=== PATIENT | male | born 1985 | race African-American/Black ===

== ENCOUNTER 2016-11-09 10:35 | Emergency (ER) | payer OTHER ==
--- NOTE | ~2016-11-09 | EKG ---
PATIENT: THUY VERMA UNIT #: [id number] Ventricular Rate: 62 BPM Atrial Rate: 62 BPM P-R Interval: 164 ms QRS Duration: 94 ms Q-T Interval: 384 ms QTC Calculation(Bezet): 389 ms P [place]: 24 degrees Calculated R [place]: 78 degrees Calculated T [place]: 62 degrees Diagnosis Line: Normal sinus rhythm Diagnosis Line: Voltage criteria for left ventricular hypertrophy Diagnosis Line: ST elevation, consider early repolarization Diagnosis Line: Abnormal ECG Diagnosis Line: No previous ECGs available Diagnosis Line: Confirmed by PRICILLA CHENG MD ([id number]) on Diagnosis Line: 11/09/2016 3:50:20 PM INTERPRETING MD: SKYLAR STEVENS
--- NOTE | ~2016-11-09 | CR72 ---
[facility] A Service of [facility] & [facility] RADIOLOGY TEXT RESULTS PATIENT: THUY VERMA LOCATION: [facility] : 81 UNIT #: [id number] AGE: [address]: Reese Bernstein MD SEX: M ORDER DR: [id number] [facility] [address] [place], [place] [address] [id number] E MR#: [id number] Acc #: [id number] NAME: THUY VERMA : 1985 SEX: M STUDY DATE/TIME: 11/09/2016 11:16 UNIT: [facility] ROOM: STUDY DESCRIPTION: CR Chest Single View Portable Attending Physician: Reese Bernstein M.D. Ordering Physician: Reese Bernstein M.D. Primary Care Physician: Primary Care Physician No MEDICAL IMAGING REPORT This report is preliminary unless electronic signature is present EXAM Portable chest INDICATION Left-sided chest pain since last night. COMPARISON 10/20/2011. FINDINGS A portable view of the chest was obtained. The heart size and vascularity are normal. The lungs are clear. The bones are unremarkable. IMPRESSION No active disease. Dictated by... Srinivasa Fajardo M.D. THIS IS AN ELECTRONICALLY VERIFIED REPORT Srinivasa Fajardo M.D. at 11/09/2016 1:22 PM GUILLERMO/vickie TD: 11/09/2016 12:51 JOB #: [id number] MEDICAL IMAGING REPORT Page 1 of 1 COPY
[~2016-11-09 10:35] MED LIST: ADVAIR 1001 DISK W/D; ALBUTEROL17 GM; SINGULAIR; SINGULAIR PO; TYLOX 5/500 CAP1 CAP PO; VICODIN PO
[2016-11-09 11:36] LABS: POC - CKMB <1.0 ng/mL (0.0-7.9); POC - TROPONIN <0.05 ng/mL (<=0.05)
[2016-11-09 12:07] LABS: BASOPHIL% 0.3 % (0-2.5); EOSINOPHIL# 0.1 X10e3 (0-0.7); EOSINOPHIL% 2.1 % (0.0-7.0); HEMATOCRIT 41.8 % (38.0-50.0); HEMOGLOBIN 13.5 gm/dL (13.0-16.0); LYMPHOCYTE# 1.9 X10e3 (1.0-3.5); LYMPHOCYTE% 42.6 % (17.0-45.0); MEAN CELL VOLUME 88.8 FL (83-96); MEAN CORPUSCULAR HEMOGLOBIN 28.7 PG (28-34); MEAN CORPUSCULAR HGB CONC 32.3 g/dL (30-36); MEAN PLATELET VOLUME 7.6 FL (6.5-11.5); MONOCYTE# 0.3 X10e3 (0-1.0); MONOCYTE% 7.4 % (3.0-12.0); NEUTROPHIL# 2.1 X10e3 (1.5-7.1); NEUTROPHIL% 47.6 % (40-75); PLATELET COUNT 193 X10e3 (140-420); RED BLOOD COUNT 4.71 X10e (3.90-5.60); RED CELL DISTRIBUTION WIDTH 13.9 % (11.0-15.5); WHITE BLOOD COUNT 4.4 X10e3 (4.0-10.5)
[2016-11-09 12:14] LABS: DIFF IND NO
[2016-11-09 12:30] LABS: ALBUMIN SERUM 4.7 g/dL (3.5-5.0); BILIRUBIN, DIRECT 0.1 mg/dL (0.0-0.2); BILIRUBIN,INDIRECT 0.2 mg/dL (0.0-0.9); BILIRUBIN,TOTAL 0.3 mg/dL (0.2-2.0); BUN/CREATININE RATIO 18.75; CALCIUM SERUM 9.6 mg/dL (8.4-10.2); CREATININE SERUM 0.8 mg/dL (0.6-1.4); GLOM FILT RATE Estimated 136.1 mL/min (>60); POTASSIUM 4.4 mmol/L (3.5-5.1); PROTEIN TOTAL SERUM 8.1 g/dL (6.0-8.3)
[2016-11-09 13:17] LABS: POC - CKMB <1.0 ng/mL (0.0-7.9); POC - TROPONIN <0.05 ng/mL (<=0.05)
== END 2016-11-09 14:45 | disposition home or self-care (01) ==
LOC: CED 10:35
PROVIDERS: Emergency Medicine
DX: R07.89 Other chest pain (principal); F41.9 Anxiety disorder, unspecified; J45.909 Unspecified asthma, uncomplicated; Z88.8 Allergy status to other drugs, medicaments and biological substances
CPT/HCPCS: 36415; 71010; 80048; 80076; 82553; 83735; 84484; 85025; 93005; 96374; 99285; J2060

== ENCOUNTER 2016-11-09 11:00 | Inpatient (IN) | payer OTHER ==
--- NOTE | ~2016-11-09 | PN ---
Unit #: [id number] #: [id number] Patient: THUY HIGUERA [id number] [facility] [address] [place] [address] [id number] I MR#: [id number] NAME: THUY HIGUERA ROOM: [facility] Age: 31 Sex: M Admission Date: 11/09/2016 : 1985 Attending Physician: Jose Roberto Whitfield M.D. Admitting Physician: Jose Roberto Whitfield M.D. Primary Care Physician: Primary Care Physician Znia MIX NOTES DATE OF SERVICE 11/11/2016 DISCUSSION Mr. Higuera is a 31-year-old male who was seen today. Chart was reviewed and case was discussed with the staff. He remains anxious, withdrawn, disorganized, and was reading scriptures from the Bible in a dark room with the doors locked and without any light on and was once again seen to be mumbling at best and reaching out, shaking hands, and showing some hyperreligiosity and some persistent delusional behavior. Meanwhile, he has been taking the medications including the Risperdal which was just adjusted yesterday. MENTAL STATUS EXAMINATION Young male who is casually dressed with fair personal hygiene, appears to be in no acute distress or discomfort. The patient was awake and alert with impaired attention and concentration. His mood is anxious with congruent affect. Speech is slow and tangential. His thought processes were disorganized with some looseness of associations and paranoid ideations. His insight and judgment remain significantly impaired. TREATMENT PLAN 1. We will continue him on his current medications and treatment protocol. We will monitor his response to the medications and make further adjustments as needed. 2. We will continue to follow up. Dictated by... David Espinal/neeta TD: 11/11/2016 11:50 JOB #: [id number] Unit #: [id number] #: [id number] Patient: THUY HIGUERA PROGRESS NOTES Page 1 of 1 X Jose Roberto Whitfield MD PROGRESS NOTE
--- NOTE | ~2016-11-09 | DS ---
Unit #: [id number] #: [id number] Patient: THUY VERMA [id number] [place] [address] [id number] I MR#: [id number] NAME: THUY VERMA ROOM: 13 Age: 31 Sex: M Admission Date: 11/09/2016 : 1985 Discharge Date: 11/15/2016 Attending Physician: Jose Roberto Whitfield M.D. Primary Care Physician: Primary Care Physician No DISCHARGE SUMMARY IDENTIFYING DATA Mr. Verma is a 31-year-old single male, who was stepped up to the inpatient unit from the adult intensive outpatient treatment program. DISCHARGE DIAGNOSES Psychiatric: Schizoaffective disorder, bipolar type, most recent episode depressed, recurrent, moderate, with psychosis. Medical: None. Stressors: Mild psychosocial stressors. HISTORY OF PRESENT ILLNESS Please see initial psychiatric evaluation for details. PAST PSYCHIATRIC HISTORY Please see initial psychiatric evaluation for details. PAST MEDICAL HISTORY Please see initial psychiatric evaluation for details. HOSPITAL COURSE The patient was admitted to the adult psychiatric unit at [facility] and was oriented to the hospital environment. Routine p.r.n. medications were initiated, and he was started back on his home medication including his Risperdal which was titrated up to 1 mg b.i.d. and he was closely monitored. He was anxious, withdrawn, rather seclusive to himself, though did not show any agitation or aggression and was rather polite and pleasant and compliant with treatment recommendation and was taking the medications regularly and was tolerating them fairly well and was able to show improvement in his mood and attitude, particularly his psychosis without any tolerability issues. He was denying any suicidal ideations, intent, or plan and was not seen to be a danger to self or anyone else, and was willing to continue treatment through intensive outpatient treatment program at [facility] and as such, it was decided that he will be discharged home and will continue treatment on an outpatient basis. DISCHARGE MEDICATIONS Risperdal 1 mg b.i.d. for psychosis. DISCHARGE CONDITION Stable. PROGNOSIS Unit #: [id number] #: [id number] Patient: THUY VERMA [facility]. Dictated by... Jose Roberto Whitfield M.D. IAA/modl TD: 11/15/2016 22:40 JOB #: [id number] DISCHARGE SUMMARY Page 1 of 1 X Jose Roberto Whitfield MD DISCHARGE SUMMARY
--- NOTE | ~2016-11-09 | PN ---
Unit #: [id number] #: [id number] Patient: THUY VERMA [id number] [facility] [address] [place] [address] [id number] I MR#: [id number] NAME: THUY VERMA ROOM: 13 Age: 31 Sex: M Admission Date: 11/09/2016 : 1985 Attending Physician: Jose Roberto Whitfield M.D. Admitting Physician: Jose Roberto Whitfield M.D. Primary Care Physician: Primary Care Physician Zina MIX NOTES DATE OF SERVICE 11/13/2016 DISCUSSION Mr. Verma is a 31-year-old male who was seen today. Chart was reviewed and case was discussed with the staff. He has been anxious, withdrawn, and rather seclusive to himself. Meanwhile, he has been cooperative with treatment recommendations and has been taking the medications and tolerating them fairly well with no reported side effects. MENTAL STATUS EXAMINATION Young male who is casually dressed with fair personal hygiene, appears to be in no acute distress or discomfort. The patient was awake and alert on interaction with intact orientation. His mood is anxious with congruent affect. He denies any suicidal or homicidal ideations. His insight and judgment remain slightly impaired. TREATMENT PLAN 1. We will continue him on his current treatment protocol. We will monitor his response to the medications and make further adjustments as needed. 2. We will continue to follow up. Dictated by... Jose Roberto Whitfield M.D. IAA/bzg TD: 11/13/2016 13:52 JOB #: [id number] [facility] PROGRESS NOTES Page 1 of 1 X Jose Roberto Whitfield MD PROGRESS NOTE
--- NOTE | ~2016-11-09 | PA ---
Unit #: [id number] #: [id number] Patient: THUY VERMA [id number] [facility] [address] [place] [address] [id number] I MR#: [id number] NAME: THUY VERMA ROOM: 13 Age: 31 Sex: M Admission Date: 11/09/2016 : 1985 Date of Assessment: 11/09/2016 Attending Physician: Jose Roberto Whitfield M.D. Admitting Physician: Jose Roberto Whitfield M.D. Primary Care Physician: Primary Care Physician No PSYCHIATRIC ASSESSMENT DATE OF SERVICE 11/09/2016. IDENTIFYING DATA Mr. Verma is a 31-year-old male, who was stepped up to the inpatient unit from the intensive outpatient treatment program. CHIEF COMPLAINT "I've been hearing voices and I feel suicidal." HISTORY OF PRESENT ILLNESS Mr. Verma is a 31-year-old male with history of schizoaffective disorder, who was stepped up to the inpatient unit with increasing depression, psychosis, paranoia, and delusional behavior and was unable to contract for safety and was failing the outpatient treatment program and was seen to be decompensating on his mood and psychosis and became a danger to self and as such, a recommendation for inpatient level of care for safety and stabilization was made and the patient was stepped up to the inpatient unit. PAST PSYCHIATRIC HISTORY The patient has had a history of inpatient and outpatient psychiatric treatment and has been diagnosed and treated for mood disorder and psychosis and is currently on Risperdal, but does not appear to be showing a therapeutic response to the medication. PAST MEDICAL HISTORY No acute or chronic medical illness. PERSONAL AND SOCIAL HISTORY A 31-year-old male, who reports that he is single, unemployed, and lives at home with his family and has fairly decent social support system. MENTAL STATUS EXAMINATION Young male, who was casually dressed with fair personal hygiene, appears to be in no acute distress or discomfort. He was awake and alert on interaction with intact orientation to time, place, and person. His mood was anxious with a congruent affect. He denies any suicidal or homicidal ideations and also denies any auditory or visual hallucinations. His insight and judgment remain slightly impaired. DIAGNOSTIC IMPRESSION Unit #: [id number] #: [id number] Patient: THUY VERMA Psychiatric: Schizoaffective disorder, bipolar type, most recent episode depressed, recurrent, moderate, without psychotic features. Medical: None. Stressors: Moderate psychosocial stressors. TREATMENT PLAN 1. The patient has presented with a history of mood disorder and psychosis. We will recommend inpatient hospitalization for safety and stabilization. We will start him back on his home medications and we will adjust the medications, the Risperdal. We will monitor his response and make further adjustments as needed. 2. Supportive therapy was provided to the patient. ESTIMATED LENGTH OF STAY 5 to 7 days. ABILITY TO HELP SELF Limited. WILLINGNESS TO HELP SELF The patient appears to be willing to help self. STRENGTHS 1. Communicative. 2. Cooperative. PROBLEMS 1. Chronic dysphoric symptoms. 2. Poor social support system. DISCHARGE CRITERIA This will be contingent upon the patient's ability to show resolution of his depression and psychosis and his ability to stay safe to himself, particularly after discharge from the hospital. Dictated by... David Espinal/meryl TD: 11/25/2016 17:04 JOB #: [id number] PSYCHIATRIC ASSESSMENT Page 1 of 1 X Jose Roberto Whitfield MD X PSYCHIATRIC ASSESSMENT
--- NOTE | ~2016-11-09 | PN ---
Unit #: [id number] #: [id number] Patient: THUY HIGUERA [id number] [facility] [address] [place] [address] [id number] I MR#: [id number] NAME: THUY HIGUERA ROOM: 32 Age: 31 Sex: M Admission Date: 11/09/2016 : 1985 Attending Physician: Jose Roberto Whitfield M.D. Admitting Physician: Jose Roberto Whitfield M.D. Primary Care Physician: Primary Care Physician Zina MIX NOTES DATE OF SERVICE 11/09/2016 DISCUSSION Mr. Higuera is a 31-year-old male who was seen today. Chart was reviewed and case was discussed with staff. He has been exhibiting acute psychosis and bizarre behavior and significant paranoia and delusional behavior and was mumbling at best even though I told him that there is no one else in the room, he was having difficulty speaking up, and then he would make statements that he cannot talk to me about that though he was going on making statements that he does not feel safe and wants to be hospitalized and that he did go to [facility] over the weekend, but they did not admit him in the hospital, and that he need (1) ___ right now. Then he started complaining of chest pain, and even thought it appears to be anxiogenic in nature, he was (2) ___ it was decided that he will be sent out to the emergency room at [facility] followed by which, we will consider getting him go to the acute inpatient psychiatric unit. Dictated by... David Espinal/bzg TD: 11/10/2016 12:33 JOB #: [id number] [facility] PROGRESS NOTES Page 1 of 1 X Jose Roberto Whitfield MD PROGRESS NOTE
--- NOTE | ~2016-11-09 | PN ---
Unit #: [id number] #: [id number] Patient: THUY HIGUERA [id number] [facility] [address] [place] [address] [id number] I MR#: [id number] NAME: THUY HIGUERA ROOM: 13 Age: 31 Sex: M Admission Date: 11/09/2016 : 1985 Attending Physician: Jose Roberto Whitfield M.D. Admitting Physician: Jose Roberto Whitfield M.D. Primary Care Physician: Primary Care Physician Zina MIX NOTES DATE OF SERVICE: 11/14/2016 SUBJECTIVE Mr. Higuera is a 31-year-old male who was seen today and chart was reviewed and case was discussed with the staff. He has been anxious and withdrawn, though has not shown any agitation or irritability, and has been rather seclusive to himself. Meanwhile, he has been cooperative with treatment recommendations and has been taking the medications and tolerating them fairly well with no reported side effects. MENTAL STATUS EXAMINATION Young male who was casually dressed with fair personal hygiene, appears to be in no acute distress or discomfort. He was awake and alert on interaction with intact orientation. His mood was anxious with a congruent affect. He denies any suicidal or homicidal ideations. His insight and judgment remain slightly impaired. TREATMENT PLAN We will continue him on his current treatment and protocol. We will monitor his response to the medications and make further adjustments as needed. Dictated by... David Espinal/isiahl TD: 11/15/2016 23:29 JOB #: [id number] [facility] PROGRESS NOTES Page 1 of 1 X Jose Roberto Whitfield MD PROGRESS NOTE
--- NOTE | ~2016-11-09 | PN ---
Unit #: [id number] #: [id number] Patient: THUY HIGUERA [id number] [facility] [address] [place] [address] [id number] I MR#: [id number] NAME: THUY HIGUERA ROOM: 13 Age: 31 Sex: M Admission Date: 11/09/2016 : 1985 Attending Physician: Jose Roberto Whitfield M.D. Admitting Physician: Jose Roberto Whitfield M.D. Primary Care Physician: Primary Care Physician Zina HENRY PROGRESS NOTES DATE 11/12/2016 DISCUSSION Mr. Higuera is a 31-year-old male who was seen today and chart was reviewed and case was discussed with the staff. He has been anxious, withdrawn and seclusive to himself. Meanwhile, he has been cooperative with treatment recommendations and has been taking medications and tolerating them fairly well with no reported side effects. MENTAL STATUS EXAMINATION Young male who was casually dressed with fair personal hygiene and appears to be in no acute distress or discomfort. He was awake and alert on interaction with intact orientation. His mood was anxious with congruent affect. He denies any suicidal or homicidal ideation. His insight and judgement remains slightly impaired. TREATMENT PLAN 1. Will continue on his current medications and treatment protocol. Will monitor his response to the medications and make further adjustments as needed. 2. Will continue to follow up. Dictated by... David Espinal/paulo TD: 11/12/2016 15:55 JOB #: [id number] Unit #: [id number] #: [id number] Patient: THUY HIGUERA PROGRESS NOTES Page 1 of 1 X Jose Roberto Whitfield MD PROGRESS NOTE
--- NOTE | ~2016-11-09 | HP ---
Unit #: [id number] #: [id number] Patient: THUY VERMA [id number] [place] [address] [id number] I MR#: [id number] NAME: THUY VERMA ROOM: 32 Age: 31 Sex: M Admission Date: 11/09/2016 : 1985 Attending Physician: Jose Roberto Whitfield M.D. Admitting Physician: Jose Roberto Whitfield M.D. Primary Care Physician: Primary Care Physician No HISTORY AND PHYSICAL HISTORY OF PRESENT ILLNESS Thuy is a 31 year old admitted to [address] [place] [address] with psychotic behavior, delusions and increased paranoia. He is a poor historian so his history is taken from his chart. PAST MEDICAL HISTORY Asthma PAST SURGICAL HISTORY Left orchiectomy ALLERGIES Ibuprofen SOCIAL HISTORY Smokes less than one-half pack per day. Drinks beer on occasion. Admits to smoking marijuana on a daily basis. FAMILY HISTORY Medically noncontributory. REVIEW OF SYSTEMS He doesn't answer all questions appropriately. There were no reports of nausea and vomiting or diarrhea. He has had no cough or increased temperature. CURRENT MEDICATIONS 1. Risperdal 1 mg q.h.s. 2. Naproxen 500 mg b.i.d. 3. Vistaril p.r.n. 4. Desyrel p.r.n. 5. Nicotine patch 21 mg q day PHYSICAL EXAMINATION GENERAL: Alert, well-nourished, in no apparent distress. VITAL SIGNS: Blood pressure 116/82, heart rate 80, respirations 16, temperature 98.6. WEIGHT: 130 pounds. HEIGHT: 5'5". SKIN: Warm and dry without rash or lesion. HEENT: Normocephalic. TMs not viewed. Oral and nasal passages clear. Conjunctivae clear. Pupils equal, round and reactive to light and Unit #: [id number] #: [id number] Patient: THUY VERMA accommodation. Extraocular movements intact. NECK: Supple without lymphadenopathy or thyromegaly. HEART: Regular rate and rhythm without murmur. LUNGS: Clear. ABDOMEN: Soft, nontender. : Not done. EXTREMITIES: No evidence of cyanosis, clubbing or edema. Moves all extremities without focal deficit. NEUROLOGICAL: Unable to complete extended exam. He does move all extremities without focal deficit. Hand overhead worker is equal and gait is normal. IMPRESSION Psychiatric admission RECOMMENDATIONS PSYCHIATRIC: Per psychiatrist. MEDICAL: I see no contraindications to participating in facility's activities. MEDICAL PROGNOSIS Good. MEDICAL CONDITION Stable. Dictated by... Holley Wallis P.A.-C. for David Aguilera/jaden TD: 11/10/2016 03:57 JOB #: [id number] HISTORY AND PHYSICAL Page 1 of 1 X Holley Wallis HISTORY AND PHYSICAL
[2016-11-10 12:28] LABS: BASOPHIL% 0.4 % (0-2.5); DIFF IND NO; EOSINOPHIL# 0.2 X10e3 (0-0.7); EOSINOPHIL% 4.2 % (0.0-7.0); HEMATOCRIT 42.5 % (38.0-50.0); HEMOGLOBIN 13.7 gm/dL (13.0-16.0); LYMPHOCYTE# 1.8 X10e3 (1.0-3.5); LYMPHOCYTE% 49.3 % (17.0-45.0); MEAN CORPUSCULAR HEMOGLOBIN 28.6 PG (28-34); MEAN CORPUSCULAR HGB CONC 32.1 g/dL (30-36); MEAN PLATELET VOLUME 7.6 FL (6.5-11.5); MONOCYTE# 0.3 X10e3 (0-1.0); MONOCYTE% 9.6 % (3.0-12.0); NEUTROPHIL# 1.3 X10e3 (1.5-7.1); NEUTROPHIL% 36.5 % (40-75); PLATELET COUNT 199 X10e3 (140-420); RED BLOOD COUNT 4.78 X10e (3.90-5.60); RED CELL DISTRIBUTION WIDTH 13.9 % (11.0-15.5); WHITE BLOOD COUNT 3.6 X10e3 (4.0-10.5)
[2016-11-10 12:35] LABS: ALBUMIN SERUM 4.4 g/dL (3.5-5.0); BILIRUBIN,TOTAL 0.9 mg/dL (0.2-2.0); BUN/CREATININE RATIO 17.77; CALCIUM SERUM 9.5 mg/dL (8.4-10.2); CREATININE SERUM 0.9 mg/dL (0.6-1.4); GLOM FILT RATE Estimated 129.6 mL/min (>60); POTASSIUM 4.4 mmol/L (3.5-5.1); PROTEIN TOTAL SERUM 7.5 g/dL (6.0-8.3)
[2016-11-10 12:43] LABS: THYROID STIMULATING HORMONE 0.51 uIU/ml (0.34-5.60)
[2016-11-10 12:50] LABS: FREE THYROXIN (T4) 0.98 ng/dL (0.58-1.64)
== END 2016-11-15 10:50 | disposition home or self-care (01) | DRG 885 ==
LOC: P1S 14:36
PROVIDERS: Psychiatry & Neurology Psychiatry
DX: F31.5 Bipolar disorder, current episode depressed, severe, with psychotic features (principal); F17.210 Nicotine dependence, cigarettes, uncomplicated; J45.909 Unspecified asthma, uncomplicated
CPT/HCPCS: 80053; 84439; 84443; 85025

== ENCOUNTER 2016-11-21 12:51 | Emergency (ER) | payer OTHER ==
--- NOTE | ~2016-11-21 | EKG ---
PATIENT: THUY VERMA UNIT #: [id number] Ventricular Rate: 86 BPM Atrial Rate: 86 BPM P-R Interval: 150 ms QRS Duration: 80 ms Q-T Interval: 350 ms QTC Calculation(Bezet): 418 ms P [place]: 68 degrees Calculated R [place]: 68 degrees Calculated T [place]: 56 degrees Diagnosis Line: Normal sinus rhythm with sinus arrhythmia Diagnosis Line: Minimal voltage criteria for LVH, may be normal Diagnosis Line: variant Diagnosis Line: Borderline ECG Diagnosis Line: When compared with ECG of 09-NOV-2016 10:34, Diagnosis Line: No significant change was found Diagnosis Line: Confirmed by IGNACIO SHAH MD ([id number]) on 11/21/2016 Diagnosis Line: 4:54:07 PM INTERPRETING MD: ALYSSA STEVENS
[2016-11-21 14:10] LABS: BASOPHIL% 0.3 % (0-2.5); EOSINOPHIL# 0.3 X10e3 (0-0.7); EOSINOPHIL% 3.8 % (0.0-7.0); LYMPHOCYTE% 27.5 % (17.0-45.0); MEAN CELL VOLUME 87.4 FL (83-96); MEAN CORPUSCULAR HEMOGLOBIN 29.1 PG (28-34); MEAN CORPUSCULAR HGB CONC 33.3 g/dL (30-36); MEAN PLATELET VOLUME 6.8 FL (6.5-11.5); MONOCYTE# 0.5 X10e3 (0-1.0); MONOCYTE% 7.2 % (3.0-12.0); NEUTROPHIL# 4.5 X10e3 (1.5-7.1); NEUTROPHIL% 61.2 % (40-75); PLATELET COUNT 191 X10e3 (140-420); RED BLOOD COUNT 4.81 X10e (3.90-5.60); RED CELL DISTRIBUTION WIDTH 13.8 % (11.0-15.5); WHITE BLOOD COUNT 7.4 X10e3 (4.0-10.5)
[2016-11-21 14:19] LABS: DIFF IND NO
[2016-11-21 14:32] LABS: ALBUMIN SERUM 4.8 g/dL (3.5-5.0); ALKALINE PHOSPHATASE 49 U/L (32-92); ALT (SGPT) 41 U/L (10-40); AST (SGOT) 61 U/L (10-42); BILIRUBIN,TOTAL 0.5 mg/dL (0.2-2.0); BLOOD UREA NITROGEN 17 mg/dL (9-23); CALCIUM SERUM 9.8 mg/dL (8.4-10.2); CARBON DIOXIDE 30 mmol/L (22-31); CHLORIDE 100 mmol/L (100-111); GLOM FILT RATE Estimated 114.1 mL/min (>60); GLUCOSE FASTING 101 mg/dL (70-110); POTASSIUM 4.5 mmol/L (3.5-5.1); PROTEIN TOTAL SERUM 8.4 g/dL (6.0-8.3); SODIUM 137 mmol/L (135-145)
[2016-11-21 14:34] LABS: POC - CKMB 1.6 ng/mL (0.0-7.9); POC - TROPONIN <0.05 ng/mL (<=0.05)
[2016-11-21 14:38] LABS: BILIRUBIN, DIRECT <0.1 mg/dL (0.0-0.2); BILIRUBIN,INDIRECT 0.4 mg/dL (0.0-0.9)
[2016-11-21 16:35] LABS: POC - CKMB 1.2 ng/mL (0.0-7.9); POC - TROPONIN <0.05 ng/mL (<=0.05)
== END 2016-11-21 17:36 | disposition home or self-care (01) ==
LOC: CED 12:51
DX: R07.89 Other chest pain (principal); Z91.041 Radiographic dye allergy status; Z91.030 Bee allergy status; Z88.8 Allergy status to other drugs, medicaments and biological substances
CPT/HCPCS: 36415; 80048; 80076; 82553; 84484; 85025; 93005; 99285

== ENCOUNTER 2016-11-24 09:50 | Emergency (ER) | payer OTHER ==
--- NOTE | ~2016-11-24 | EKG ---
PATIENT: THUY VREMA UNIT #: [id number] Ventricular Rate: 91 BPM Atrial Rate: 91 BPM P-R Interval: 154 ms QRS Duration: 78 ms Q-T Interval: 336 ms QTC Calculation(Bezet): 413 ms P [place]: 65 degrees Calculated R [place]: 64 degrees Calculated T [place]: 50 degrees Diagnosis Line: Normal sinus rhythm Diagnosis Line: Early repolarization Diagnosis Line: Normal ECG Diagnosis Line: When compared with ECG of 21-NOV-2016 13:03, Diagnosis Line: No significant change was found Diagnosis Line: Confirmed by MONIKA CARBONE MD ([id number]) on Diagnosis Line: 11/26/2016 3:39:38 PM INTERPRETING MD: EDNA
--- NOTE | ~2016-11-24 | CR63 ---
[facility] A Service of [facility] & [facility] RADIOLOGY TEXT RESULTS PATIENT: THUY VERMA LOCATION: [facility] : 81 UNIT #: [id number] AGE: [address]: Alba Macario SEX: M ORDER DR: [id number] [facility] [address] [place], [place] [address] [id number] MR#: [id number] Acc #: [id number] NAME: THUY VERMA : 1985 SEX: M STUDY DATE/TIME: 11/24/2016 10:21 UNIT: [facility] ROOM: STUDY DESCRIPTION: CR Chest 2 View Attending Physician: Alba Macario P.A.-C. Ordering Physician: Alba Macario P.A.-C. Primary Care Physician: Primary Care Physician No MEDICAL IMAGING REPORT This report is preliminary unless electronic signature is present EXAM Two views chest, 11/24/16 HISTORY Chest pain. FINDINGS PA and lateral radiographs of the chest are presented. Patient stats chest pain, spasm for one month. History of pericarditis. Comparison: 11/09/16 Heart upper limits of normal in size. Stable appearance. No acute bony abnormality. Lungs are well inflated. No acute pulmonary disease, pleural effusion or pneumothorax. No suspicious nodule. . Dictated by... Maury Gaffney M.D. THIS IS AN ELECTRONICALLY VERIFIED REPORT Maury Gaffney M.D. at 11/25/2016 6:12 PM Rafael TD: 11/24/2016 11:18 JOB #: [id number] MEDICAL IMAGING REPORT Page 1 of 1 COPY
[2016-11-24 10:26] LABS: BASOPHIL% 0.3 % (0-2.5); DIFF IND NO; EOSINOPHIL# 0.2 X10e3 (0-0.7); EOSINOPHIL% 2.5 % (0.0-7.0); HEMATOCRIT 40.7 % (38.0-50.0); HEMOGLOBIN 13.4 gm/dL (13.0-16.0); LYMPHOCYTE# 2.5 X10e3 (1.0-3.5); MEAN CELL VOLUME 87.2 FL (83-96); MEAN CORPUSCULAR HEMOGLOBIN 28.7 PG (28-34); MEAN CORPUSCULAR HGB CONC 32.9 g/dL (30-36); MEAN PLATELET VOLUME 7.1 FL (6.5-11.5); MONOCYTE# 0.4 X10e3 (0-1.0); MONOCYTE% 6.6 % (3.0-12.0); NEUTROPHIL# 3.6 X10e3 (1.5-7.1); NEUTROPHIL% 53.6 % (40-75); PLATELET COUNT 201 X10e3 (140-420); RED BLOOD COUNT 4.66 X10e (3.90-5.60); RED CELL DISTRIBUTION WIDTH 13.7 % (11.0-15.5); WHITE BLOOD COUNT 6.7 X10e3 (4.0-10.5)
[2016-11-24 10:33] LABS: POC - CKMB <1.0 ng/mL (0.0-7.9); POC - TROPONIN <0.05 ng/mL (<=0.05)
[2016-11-24 10:56] LABS: BUN/CREATININE RATIO 18.88; CALCIUM SERUM 9.6 mg/dL (8.4-10.2); CREATININE SERUM 0.9 mg/dL (0.6-1.4); GLOM FILT RATE Estimated 129.6 mL/min (>60); POTASSIUM 4.4 mmol/L (3.5-5.1)
== END 2016-11-24 11:04 | disposition home or self-care (01) ==
LOC: CED 09:50 → CFTX 09:50
PROVIDERS: Physician Assistant
DX: R07.89 Other chest pain (principal); F22 Delusional disorders; F31.9 Bipolar disorder, unspecified; J45.909 Unspecified asthma, uncomplicated; F17.200 Nicotine dependence, unspecified, uncomplicated; Z91.030 Bee allergy status; Z91.018 Allergy to other foods; F41.9 Anxiety disorder, unspecified
CPT/HCPCS: 36415; 71020; 80048; 82553; 84484; 85025; 93005; 99284

== ENCOUNTER 2016-11-27 11:30 | Observation (INO) | payer OTHER ==
--- NOTE | ~2016-11-27 | HP ---
Unit #: [id number] #: [id number] Patient: THUY VERMA [id number] [address] [place], [place] [address] [id number] I MR#: [id number] NAME: THUY VERMA ROOM: 322 Age: 31 Sex: M Admission Date: 11/27/2016 : 1985 Attending Physician: Reese Vickers M.D. Primary Care Physician: No Primary Care Physician HISTORY AND PHYSICAL HISTORY OF PRESENT ILLNESS This is a 31-year-old -Malaysian male who presented to the emergency room with a complaint of chest pain. He states he has substernal and left anterior chest pain that is nonradiating to his neck, arm or jaw. He has associated shortness of breath, diaphoresis, dizziness and occasional nausea. He has a history of panic attacks and most of his chest pain is related to panic attacks. He has had episodes of chest pain when he was not having a panic attack. He has been to this emergency room on three separate occasions as well as [facility]. He was told at one time he had pericarditis and was started on Naprosyn. He also was told that he had muscle spasms and was started on Flexeril. He has been taking these medications but his symptoms reoccur. He describes the chest pain as a tightness with spasms. They have awakened him from sleep and it does occur with activities as well as with rest. In the emergency room, his enzymes were negative. His EKG showed ST elevation that was consistent with repolarization. His heart rate and blood pressure remained stable. He has had no prior cardiac history or testing. His risk factors for ischemic heart disease include nicotine abuse. PAST MEDICAL HISTORY 1. Asthma. 2. Anxiety/depression. 3. Active smoker. 4. ETOH abuse. 5. Occasional marijuana use. SOCIAL HISTORY The patient is not employed. He lives with his mother. He smokes four cigarettes a day, cut down from a half a pack of cigarettes a day since 01/26. He drinks two 22 ounces of beer every other day. He admits to use occasional marijuana. FAMILY HISTORY Negative for coronary artery disease. ALLERGIES Ibuprofen, honey bee stings and red dye. HOME MEDICATIONS 1. Risperdal 1 mg q.h.s. 2. Naprosyn 500 mg b.i.d. p.r.n. 3. Hydroxyzine 50 mg q.6 hours. 4. Flexeril 10 mg t.i.d. p.r.n. Unit #: [id number] #: [id number] Patient: THUY VERMA REVIEW OF SYSTEMS CONSTITUTIONAL: Negative for fever or chills. The patient has no weight gain or weight loss. No weakness or fatigue. HEENT: Positive for dizziness and occasional headache. No hearing or visual changes or difficulty with swallowing. CARDIOVASCULAR: The patient has chest pain and palpitations described in the HPI. The patient denies paroxysmal nocturnal dyspnea, orthopnea or syncope. The patient does report near syncope. RESPIRATORY: Positive for dyspnea that accompanies chest pain. No cough or hemoptysis. GASTROINTESTINAL: The patient reports nausea on occasion. No abdominal pain, constipation, melena or hematochezia. EXTREMITIES: Negative for lower extremity edema. PHYSICAL EXAMINATION GENERAL APPEARANCE: This is a tall, thin-framed, 31-year-old -Malaysian male who appears younger than his stated age. VITAL SIGNS: Blood pressure 122/72. Heart rate 81. Temperature 98.1. BMI 21. NEUROLOGIC: He is awake, alert and oriented. There are no focal weaknesses. NECK: Trachea is midline. No thyromegaly or lymphadenopathy. No jugular venous distention. CHEST: Chest wall is tender with palpation. HEART: S1, S2. Heart sounds are normal. No murmurs, rubs or clicks. Regular rate and rhythm. LUNGS: Clear without rales, rhonchi, wheezes. ABDOMEN: Soft, nontender with bowel sounds present. EXTREMITIES: Without leg edema. DIAGNOSTIC STUDIES LABORATORY: Glucose 85, BUN 21, creatinine 0.9, sodium 135, potassium 4.0, AST 56, ALT 45. Troponin less than 0.05 x2 and less than 0.03. White count 5.9, hemoglobin 13.3, hematocrit 40.6, platelet count 218. IMAGING: CT of the head is normal. CT angio of the chest shows no acute findings. No disease in the lungs. No pulmonary emboli. CARDIOVASCULAR: EKG shows normal sinus rhythm with arrhythmia with a rate of 62 beats per minute with left ventricular hypertrophy. There is ST elevation that is diffuse noted for early repolarization. IMPRESSION 1. Chest pain, questionable etiology. 2. Anxiety/depression. 3. Nicotine abuse. 4. ETOH abuse. PLAN 1. The patient has had recurrent episodes of chest pain. He has minimal risk factors for ischemic heart disease. Because of multiple visits in the emergency room, we will schedule the patient for exercise Cardiolite stress test to rule out coronary artery disease. 2. We will obtain a 2-D echocardiogram to evaluate left ventricular systolic function. 3. Encouraged the patient to quit smoking and to abstain from alcohol use. 4. If the patient's stress test is normal, the patient can be discharged Unit #: [id number] #: [id number] Patient: THUY VERMA. Dictated by Ad Gilliam A.P.R.N. for David King/srinath TD: 11/28/2016 13:24 JOB #: [id number] HISTORY AND PHYSICAL Page 1 of 1 X Ad Gilliam APRN X HISTORY AND PHYSICAL
--- NOTE | ~2016-11-27 | EKG ---
PATIENT: THUY VERMA UNIT #: [id number] Ventricular Rate: 67 BPM Atrial Rate: 67 BPM P-R Interval: 156 ms QRS Duration: 88 ms Q-T Interval: 386 ms QTC Calculation(Bezet): 407 ms P [place]: 40 degrees Calculated R [place]: 69 degrees Calculated T [place]: 51 degrees Diagnosis Line: Normal sinus rhythm with sinus arrhythmia Diagnosis Line: ST elevation, consider early repolarization Diagnosis Line: Borderline ECG Diagnosis Line: When compared with ECG of 24-NOV-2016 10:13, Diagnosis Line: No significant change was found Diagnosis Line: Confirmed by MONIKA CARBONE MD ([id number]) on Diagnosis Line: 11/28/2016 11:08:11 AM INTERPRETING CROW BISHOP
--- NOTE | ~2016-11-27 | TH ---
Unit #: [id number] #: [id number] Patient: THUY VERMA [id number] [address] [address] [id number] I MR#: [id number] NAME: THUY VERMA : 1985 SEX: M STUDY DATE/TIME: UNIT: C3A PCU ROOM: [facility] STUDY DESCRIPTION: Nuclear Study Attending Physician: Reese Vickers M.D. Primary Care Physician: No Primary Care Physician CARDIOLOGY REPORT EXAM Exercise Cardiolite Stress Test - Nuclear Portion DESCRIPTION Using technetium 99m labeled Cardiolite, rest and stress SPECT images were obtained. Multiple SPECT images were obtained in various views including horizontal and vertical long axis and short axis views of the left ventricle. Images were obtained by gated SPECT method. The patient was administered 10.48 mCi of Cardiolite at rest. The patient was administered 36.0 mCi of Cardiolite at peak exercise. Total exercise time is 12 minutes. On the stress images, there is normal perfusion noted. The rest images show normal perfusion. Comparing rest and stress images, there is no stress-induced ischemia noted. The left ventricular ejection fraction is calculated to be 56%. There is no focal wall motion abnormality seen. CONCLUSION 1. No stress-induced ischemia noted. 2. The left ventricular ejection fraction is calculated to be 56%. 3. There is no focal wall motion abnormality seen. 4. Normal exercise Cardiolite stress test. Dictated by... David King TD: 11/29/2016 05:22 JOB #: [id number] Unit #: [id number] #: [id number] Patient: THUY VERMA CARDIOLOGY REPORT Page 1 of 1 X Delicia Raya MD <ELECTRONICALLY SIGNED> 01/01/17 1429 CARDIOLOGY REPORT
--- NOTE | ~2016-11-27 | ST ---
Unit #: [id number] #: [id number] Patient: THUY VERMA [id number] [facility]. [address] [address] [id number] I MR#: [id number] NAME: THUY VERMA : 1985 SEX: M STUDY DATE/TIME: 11/28/2016 UNIT: C3A PCU ROOM: [facility] STUDY DESCRIPTION: Attending Physician: Reese Vickers M.D. CARDIOLOGY REPORT EXAM Exercise Cardiolite stress test. FINDINGS Baseline EKG shows normal sinus rhythm with a rate of 77 beats per minute with left ventricular hypertrophy. There is early repolarization. The patient exercised on a treadmill using Tano protocol for 12 minutes and 3 seconds achieving a workload of 13.4 METS. Ninety percent (90%) of the maximal age-predicted heart rate was reached at 169 beats per minute with a maximum blood pressure response of 165/98 mmHg. The patient had no complaints of chest pain, palpitations, or dizziness. EKG during exercise showed no ST or T wave abnormalities. No arrhythmias were seen. The test was terminated secondary to achieving target heart rate. IMPRESSION 1. Functional Class I with excellent exercise tolerance with a workload of 13.4 METS. 2. Ninety percent (90%) of the maximal age-predicted heart rate was reached at 169 beats per minute with a hypertensive blood pressure response. 3. The patient had no complaints of chest pain, palpitations, or dizziness. 4. EKG during exercise showed no ST or T wave abnormalities. No arrhythmias were seen. 5. Cardiolite was injected at peak exercise with radionuclide test pending. Please correlate these results with nuclear images. 1. Dictated by... Wilbert Auguste D.M.D. for David King/can TD: 11/28/2016 14:52 JOB #: [id number] Unit #: [id number] #: [id number] Patient: THYU VERMA CARDIOLOGY REPORT Page 1 of 1 X Wilbert Auguste DMD CARDIOLOGY REPORT
--- NOTE | ~2016-11-27 | CT16 ---
[facility] A Service of [facility] RADIOLOGY TEXT RESULTS PATIENT: THUY VERMA LOCATION: [facility] 322-01 : [birth year] UNIT #: [id number] AGE: [address]: Reese Vickers MD SEX: M ORDER DR: [id number] [facility] [address] [place], [place] [address] [id number] MR#: [id number] Acc #: [id number] NAME: THUY VERMA : 1985 SEX: M STUDY DATE/TIME: 11/27/2016 14:57 UNIT: [facility] ROOM: STUDY DESCRIPTION: CT Angio Chest for PE Attending Physician: Jitendra Knight D.O. Ordering Physician: Jitendra Knight D.O. Primary Care Physician: No Primary Care Physician MEDICAL IMAGING REPORT This report is preliminary unless electronic signature is present EXAM CT angiogram chest with IV contrast. HISTORY Chest pain for 4 weeks. Left side pain. Dizzy. TECHNIQUE This CT exam was performed with one or more of the following radiation dose reduction techniques: automatic exposure control, adjustment of mA and/or kV according to patient size, and iterative reconstruction. FINDINGS IV contrast enhanced CT angiogram of the chest was performed with 3-D reconstructions. No pulmonary infiltrates or effusions. The lungs are clear. No pulmonary emboli. Normal-caliber pulmonary arteries. Normal caliber thoracic aorta. IMPRESSION No acute findings. No active disease in the lungs. No pulmonary emboli. Dictated by... Anup Bolden M.D. THIS IS AN ELECTRONICALLY VERIFIED REPORT Anup Bolden M.D. at 11/27/2016 10:50 PM VANDANA/elyssa TD: 11/27/2016 17:54 JOB #: [id number] [facility] A Service of [facility] RADIOLOGY TEXT RESULTS PATIENT: THUY VERMA LOCATION: [facility] 322-01 : [birth year] UNIT #: [id number] AGE: [address]: Reese Vickers MD SEX: M ORDER DR: MEDICAL IMAGING REPORT Page 1 of 1 COPY
--- NOTE | ~2016-11-27 | EKG ---
PATIENT: THUY VERMA UNIT #: [id number] Ventricular Rate: 62 BPM Atrial Rate: 62 BPM P-R Interval: 152 ms QRS Duration: 90 ms Q-T Interval: 418 ms QTC Calculation(Bezet): 424 ms P [place]: 58 degrees Calculated R [place]: 75 degrees Calculated T [place]: 52 degrees Diagnosis Line: Sinus rhythm with marked sinus arrhythmia Diagnosis Line: Minimal voltage criteria for LVH, may be normal Diagnosis Line: variant Diagnosis Line: Early repolarization Diagnosis Line: Borderline ECG Diagnosis Line: When compared with ECG of 27-NOV-2016 13:35, Diagnosis Line: (unconfirmed) Diagnosis Line: No significant change was found Diagnosis Line: Confirmed by TONA STEVENS, MONIKA ([id number]) on Diagnosis Line: 11/28/2016 11:11:42 AM INTERPRETING MDJason BISHOP
--- NOTE | ~2016-11-27 | CT71 ---
[facility] A Service [facility] RADIOLOGY TEXT RESULTS PATIENT: THUY VERMA LOCATION: [facility] 322-01 : [birth year] UNIT #: [id number] AGE: [address]: Reese Vickers MD SEX: M ORDER DR: [id number] [place] [id number] [place], [place] [address] [id number] E MR#: [id number] Acc #: [id number] NAME: THUY VERMA : 1985 SEX: M STUDY DATE/TIME: 11/27/2016 14:55 UNIT: [facility] ROOM: STUDY DESCRIPTION: CT Head Wo Contrast Attending Physician: Jitendra Knight D.O. Ordering Physician: Jitendra Knight D.O. Primary Care Physician: Primary Care Physician No MEDICAL IMAGING REPORT This report is preliminary unless electronic signature is present EXAM CT head without contrast dated 11/27/16. COMPARISON CT head without contrast dated 10/14/11. HISTORY Dizziness for 4 weeks. Chest pain for 3-4 weeks, particularly left-sided. FINDINGS CT of the head was obtained without contrast in the axial plane as per the protocol. This CT exam was performed with one or more of the following radiation dose reduction techniques: automatic exposure control, adjustment of mA and/or kV according to patient size, and iterative reconstruction. Axial noncontrast images were obtained from the skull base to the vertex. Ventricular size and configuration are normal. There is no evidence of acute infarct or hemorrhage. There are no extra-axial fluid collections. No mass lesion or mass effect is seen. There are no skull fractures. IMPRESSION Normal noncontrast head CT. Dictated by... Nolan Alvarado M.D. THIS IS AN ELECTRONICALLY VERIFIED REPORT Nolan Alvarado M.D. at 11/29/2016 8:32 PM CPR/jt TD: 11/27/2016 17:09 [facility] A Service [facility] RADIOLOGY TEXT RESULTS PATIENT: THUY VERMA LOCATION: [facility] 322-01 : [birth year] UNIT #: [id number] AGE: [address]: Reese Vickers MD SEX: M ORDER DR: JOB #: [id number] MEDICAL IMAGING REPORT Page 1 of 1 COPY
[2016-11-27 12:22] LABS: BASOPHIL% 0.2 % (0-2.5); EOSINOPHIL# 0.2 X10e3 (0-0.7); EOSINOPHIL% 3.4 % (0.0-7.0); HEMATOCRIT 40.6 % (38.0-50.0); HEMOGLOBIN 13.3 gm/dL (13.0-16.0); LYMPHOCYTE# 2.2 X10e3 (1.0-3.5); LYMPHOCYTE% 37.9 % (17.0-45.0); MEAN CELL VOLUME 86.5 FL (83-96); MEAN CORPUSCULAR HEMOGLOBIN 28.4 PG (28-34); MEAN CORPUSCULAR HGB CONC 32.9 g/dL (30-36); MEAN PLATELET VOLUME 6.7 FL (6.5-11.5); MONOCYTE# 0.5 X10e3 (0-1.0); MONOCYTE% 8.5 % (3.0-12.0); NEUTROPHIL# 2.9 X10e3 (1.5-7.1); PLATELET COUNT 218 X10e3 (140-420); RED BLOOD COUNT 4.69 X10e (3.90-5.60); RED CELL DISTRIBUTION WIDTH 13.6 % (11.0-15.5); WHITE BLOOD COUNT 5.9 X10e3 (4.0-10.5)
[2016-11-27 12:24] LABS: DIFF IND NO
[2016-11-27 12:58] LABS: ALBUMIN SERUM 4.5 g/dL (3.5-5.0); ALKALINE PHOSPHATASE 42 U/L (32-92); ALT (SGPT) 45 U/L (10-40); AST (SGOT) 56 U/L (10-42); BILIRUBIN,TOTAL 0.3 mg/dL (0.2-2.0); BLOOD UREA NITROGEN 21 mg/dL (9-23); BUN/CREATININE RATIO 23.33; CALCIUM SERUM 9.3 mg/dL (8.4-10.2); CARBON DIOXIDE 26 mmol/L (22-31); CHLORIDE 103 mmol/L (100-111); CREATININE SERUM 0.9 mg/dL (0.6-1.4); GLOM FILT RATE Estimated 129.6 mL/min (>60); GLUCOSE FASTING 85 mg/dL (70-110); PROTEIN TOTAL SERUM 7.8 g/dL (6.0-8.3); SODIUM 135 mmol/L (135-145)
[2016-11-27 13:00] LABS: POC - CKMB <1.0 ng/mL (0.0-7.9); POC - TROPONIN <0.05 ng/mL (<=0.05)
[2016-11-27 13:00] LABS: BILIRUBIN, DIRECT <0.1 mg/dL (0.0-0.2); BILIRUBIN,INDIRECT 0.2 mg/dL (0.0-0.9)
[2016-11-27 14:33] LABS: POC - CKMB 1.5 ng/mL (0.0-7.9); POC - TROPONIN <0.05 ng/mL (<=0.05)
[2016-11-27 16:53] LABS: AMPHETAMINE NEG (NEG); BARBITURATES NEG (NEG); BENZODIAZEPINES NEG (NEG); COCAINE NEG (NEG); MARIJUANA NEG (NEG); OPIATES NEG (NEG); TRICYCLIC ANTIDEPRESSANTS POS (NEG); U METHADONE NEG (NEG)
[2016-11-27] MEDS ORDERED: NAPROSYN-EC500 M1 PO (17:56)
[2016-11-27] MEDS ORDERED: RISPERDAL1 M1 PO (17:56)
[2016-11-27] MEDS ORDERED: FLEXERIL10 MG PO (17:58)
[2016-11-27] MEDS ORDERED: HYDROXYZINE HCL50 MG PO (17:58)
== END 2016-11-28 14:55 | disposition home or self-care (01) ==
LOC: CED 11:30 → CEDOF 17:40 → C3A PCU 18:08 → CEDOF 18:08 → CED 18:08 → C3A PCU 20:10 → CEDOF 20:10 → C3A PCU 11-28 14:55
PROVIDERS: Emergency Medicine
DX: R07.89 Other chest pain (principal); F41.8 Other specified anxiety disorders; F17.210 Nicotine dependence, cigarettes, uncomplicated; F10.10 Alcohol abuse, uncomplicated; J45.909 Unspecified asthma, uncomplicated
CPT/HCPCS: 36415; 70450; 71275; 78452; 80048; 80076; 80307; 82553; 84484; 85025; 93005; 93017; 93306; 96361; 96374; 96375; 99285; A9500; G0378; J2270; J2930; Q9967

== ENCOUNTER 2016-12-05 02:40 | Emergency (ER) | payer OTHER ==
[~2016-12-05 02:40] MED LIST changes: +FLEXERIL10 MG PO; +HYDROXYZINE HCL50 MG PO; +NAPROSYN-EC500 M1 PO; +RISPERDAL1 M1 PO
== END 2016-12-05 03:15 | disposition home or self-care (01) ==
LOC: CED 02:40
DX: Z76.0 Encounter for issue of repeat prescription (principal); J45.909 Unspecified asthma, uncomplicated; Z91.041 Radiographic dye allergy status
CPT/HCPCS: 99281

== ENCOUNTER 2016-12-05 21:00 | Inpatient (IN) | payer OTHER ==
--- NOTE | ~2016-12-05 | PN ---
Unit #: [id number] #: [id number] Patient: THUY HIGUERA [id number] [facility] [address] [place] [address] [id number] I MR#: [id number] NAME: THUY HIGUERA ROOM: [facility] Age: 31 Sex: M Admission Date: 12/06/2016 : 1985 Attending Physician: Jose Roberto Whitfield M.D. Admitting Physician: Jose Roberto Whitfield M.D. Primary Care Physician: Primary Care Physician Zina MIX NOTES DATE OF SERVICE 12/07/2016 DISCUSSION Mr. Higuera is a 31-year-old male who was seen today. Chart was reviewed and case was discussed with the staff. He remains anxious, withdrawn, and seclusive to himself and was having some anxiety episode yesterday and chest tightness in front of the emergency room and cardiac workup was done without any abnormalities and transferred back to us. Meanwhile, he still has been exhibiting some persistent psychosis, anxiety, and feelings of hopelessness though no agitation or aggression has been noted. MENTAL STATUS EXAMINATION Young male who is casually dressed with fair personal hygiene, appears to be in no acute distress or discomfort. The patient was awake and alert with impaired attention and concentration. His mood is anxious and depressed with congruent affect. He reports having suicidal ideations as well as auditory hallucinations and paranoid ideations. His insight and judgment remain significantly impaired. TREATMENT PLAN 1. We will continue him on his current medications, and we will increase his Risperdal to 1 mg twice a day to address his psychosis. 2. We will continue to follow up. Dictated by... David Espinal/neeta TD: 12/07/2016 13:03 JOB #: [id number] Unit #: [id number] #: [id number] Patient: THUY HIGUERA PROGRESS NOTES Page 1 of 1 X Jose Roberto Whitfield MD PROGRESS NOTE
--- NOTE | ~2016-12-05 | PA ---
Unit #: [id number] #: [id number] [facility]: [facility] VERMA [id number] [facility] [address] [id number] I MR#: [id number] NAME: THUY VERMA ROOM: P113 Age: 31 Sex: M Admission Date: 12/06/2016 : 1985 Date of Assessment: 12/06/2016 Attending Physician: Jose Roberto Whitfield M.D. Admitting Physician: Jose Roberto Whitfield M.D. Primary Care Physician: Primary Care Physician No PSYCHIATRIC ASSESSMENT DATE OF SERVICE 12/06/2016. IDENTIFYING DATA Mr. Verma is a 31-year-old single male, who is a resident of [place], [place], and was transferred to us from the intensive outpatient treatment program. CHIEF COMPLAINT "I've been hearing voices and they are telling me to hurt myself." HISTORY OF PRESENT ILLNESS Mr. Verma is a 31-year-old male with history of mood disorder and psychosis, who has been active under my care in the outpatient treatment program and has been struggling to achieve any sobriety as he has been complaining of increasing anxiety and panic and BuSpar was added and he felt that it was helping and then he started having increasing panic and anxiety and his psychosis has been the main issue as he has been paranoid, delusional, and report hearing voices and not getting along with his family members, feeling that they are after him trying to hurt him and plot something against him and it has been causing a lot of chaos and distress. He also reports that voices sometime recognize him and they are threatening towards him and that he is continued to attend outpatient program, but does not feel that he feels safe on his outpatient environment and family also felt that he was a significant threat and therefore recommendation for inpatient level of care for safety and stabilization was made. SUBSTANCE ABUSE HISTORY The patient reports history of alcohol and cannabis abuse, but reports that he has not used any drugs in 60 days. PAST PSYCHIATRIC HISTORY The patient has had history of inpatient psychiatric hospitalization at [facility] and has been diagnosed and treated for schizoaffective bipolar and is currently on Risperdal and BuSpar, but does not appear to be showing a therapeutic response to medications. PAST MEDICAL HISTORY The patient's medical history is significant for asthma. ALLERGIES Unit #: [id number] #: [id number] Patient: THUY VERMA Ibuprofen. PERSONAL AND SOCIAL HISTORY A 31-year-old male, who reports that he is single, unemployed, and lives at home with his mother and has fairly decent social support system. MENTAL STATUS EXAMINATION Young male who was casually dressed with fair personal hygiene, appears to be in no acute distress or discomfort. He was awake and alert on interaction with intact orientation to time, place, and person. His mood was anxious and depressed with a congruent affect. His speech was slow and restricted in content. His thought processes were disorganized with some looseness of associations, paranoid ideations, and auditory hallucinations. His insight and judgment remain significantly impaired. DIAGNOSTIC IMPRESSION Psychiatric: Schizoaffective disorder, bipolar type, most recent episode depressed, recurrent, moderate, with psychosis. Medical: Asthma. Stressors: Moderate psychosocial stressors. TREATMENT PLAN 1. The patient has presented with history of mood disorder and psychosis and has been decompensating and will need inpatient hospitalization for safety and stabilization. We will start him back on his home medications. We will adjust the medications and monitor response. 2. Supportive therapy was provided to the patient. 3. Safe, structured, and nourishing environment will be provided. ESTIMATED LENGTH OF STAY 5 to 7 days. ABILITY TO HELP SELF Limited. WILLINGNESS TO HELP SELF The patient appears to be willing to help self. STRENGTHS 1. Communicative. 2. Cooperative. PROBLEMS 1. Chronic dysphoric symptoms. 2. Poor social support system. DISCHARGE CRITERIA This will be contingent upon the patient's ability to show resolution of his depression and psychosis and his ability to stay safe to himself, particularly after discharge from the hospital. Dictated by... Jose Roberto Whitfield M.D. IAA/modl Unit #: [id number] #: [id number] Patient: THUY VERMA TD: 12/07/2016 06:55 JOB #: [id number] PSYCHIATRIC ASSESSMENT Page 1 of 1 X Jose Roberto Whitfield MD X PSYCHIATRIC ASSESSMENT
--- NOTE | ~2016-12-05 | PN ---
Unit #: [id number] #: [id number] Patient: THUY HIGUERA [id number] [facility] [address] [place] [address] [id number] MR#: [id number] NAME: THUY HIGUERA ROOM: 13 Age: 31 Sex: M Admission Date: 12/06/2016 : 1985 Attending Physician: Jose Roberto Whitfield M.D. Admitting Physician: Jose Roberto Whitfield M.D. Primary Care Physician: Primary Care Physician Zina MIX NOTES DATE December 08, 2016 DISCUSSION Mr. Higuera is a 31-year-old male, who was seen today and chart was reviewed and the case was discussed with the staff. He has been anxious, withdrawn, rather seclusive to himself. Meanwhile, he has been cooperative with the treatment recommendations and he has been taking the medications and tolerating them fairly well with no reported side effects. MENTAL STATUS EXAMINATION Young male, who was casually dressed with fair personal hygiene and appears to be in no acute distress or discomfort. He was awake and alert with impaired attention and concentration. His mood is anxious with a congruent affect. He denies any suicidal or homicidal ideations. His insight and judgment remain slightly impaired. TREATMENT PLAN 1. We will continue him on his current medications and treatment protocol, and will monitor his response to the medications, and make further adjustments as needed. 2. We will continue to followup. Dictated by... David Espinal/nallely TD: 12/08/2016 11:16 JOB #: [id number] Unit #: [id number] #: [id number] Patient: THUY HIGUERA PROGRESS NOTES Page 1 of 1 X Jose Roberto Whitfield MD PROGRESS NOTE
--- NOTE | ~2016-12-05 | HP ---
Unit #: [id number] #: [id number] Patient: THUY VERMA [id number] [facility] [address] [place] [address] [id number] MR#: [id number] NAME: THUY VERMA ROOM: 13 Age: 31 Sex: M Admission Date: 12/06/2016 : 1985 Attending Physician: Jose Roberto Whitfield M.D. Admitting Physician: Jose Roberto Whitfield M.D. Primary Care Physician: Primary Care Physician No HISTORY AND PHYSICAL NOTE Thuy is a 31 year old admitted to [address] [place] [address] reporting auditory hallucinations. He has other admissions to this facility. He is a poor historian so his history is taken from his chart. The patient was seen and H and P dated 11/09/2016 was reviewed. This is current. No changes. Please see H and P dated 11/09/2016. Dictated by... Holley Wallis P.A.-C. for David Aguilera/jaden TD: 12/06/2016 21:05 JOB #: [id number] HISTORY AND PHYSICAL Page 1 of 1 X Holley Wallis HISTORY AND PHYSICAL
--- NOTE | ~2016-12-05 | DS ---
Unit #: [id number] #: [id number] Patient: [facility] [id number] [facility] [address] [place] [address] [id number] I MR#: [id number] NAME: THUY HIGUERA ROOM: [facility] Age: 31 Sex: M Admission Date: 12/06/2016 : 1985 Discharge Date: 12/10/2016 Attending Physician: Jose Roberto Whitfield M.D. Primary Care Physician: Primary Care Physician No DISCHARGE SUMMARY IDENTIFYING DATA Mr. Higuera is a 31-year-old, single, male who is a resident of [place], [place], and was transferred to us from intensive outpatient treatment program. DISCHARGE DIAGNOSES Psychiatric: Schizoaffective disorder, bipolar type, most recent episode depressed, recurrent, moderate, with psychosis. Medical: None. Stressors: Moderate psychosocial stressors. HISTORY OF PRESENT ILLNESS Please see initial psychiatric evaluation for details. PAST PSYCHIATRIC HISTORY Please see initial psychiatric evaluation for details. PAST MEDICAL HISTORY Please see initial psychiatric evaluation for details. HOSPITAL COURSE The patient was admitted to the adult psychiatric unit at [facility] noemi Mancilla and was oriented to the hospital environment. Routine p.r.n. medications were initiated, and he was started back on his home medications. Medications were adjusted as the patient was exhibiting some significant psychosis and Risperdal was increased to 1 mg b.i.d. and he was seen to be doing much better and was taking the medications regularly and was tolerating them fairly well and was able to show a decent therapeutic response with improvement in psychosis and was not seen to be danger to self or anyone else and as such, it was decided that he will be kept on his current medications and will be discharged home, and will continue treatment on an outpatient basis. DISCHARGE MEDICATIONS Risperdal 1 mg b.i.d. for psychosis and BuSpar 10 mg b.i.d. for psychosis. DISCHARGE CONDITION Stable. PROGNOSIS Fair. Dictated by... Unit #: [id number] #: [id number] Patient: THUY HIGUERA David Espinal/modl TD: 12/10/2016 22:35 JOB #: [id number] DISCHARGE SUMMARY Page 1 of 1 X Jose Roberto Whitfield MD DISCHARGE SUMMARY
--- NOTE | ~2016-12-05 | PN ---
Unit #: [id number] #: [id number] Patient: THUY HIGUERA [id number] [facility] [address] [place] [address] [id number] I MR#: [id number] NAME: THUY HIGUERA ROOM: 13 Age: 31 Sex: M Admission Date: 12/06/2016 : 1985 Attending Physician: Jose Roberto Whitfield M.D. Admitting Physician: Jose Roberto Whitfield M.D. Primary Care Physician: Primary Care Physician Zian MIX NOTES DATE OF SERVICE: 12/09/2016 SUBJECTIVE Mr. Higuera is a 31-year-old male, who was seen today and chart was reviewed, and case was discussed with the staff. He has been anxious, withdrawn, and rather seclusive to himself with blunted affect and minimal interaction, though he has been taking medications and tolerating them fairly well with no reported side effects. MENTAL STATUS EXAMINATION Young male who was casually dressed with fair personal hygiene, appears to be in no acute distress or discomfort. He was awake and alert with impaired attention and concentration. His mood was anxious with a congruent affect. He denies any suicidal or homicidal ideations. His insight and judgment remain slightly impaired. TREATMENT PLAN 1. We will continue on his current medications and treatment protocol. We will monitor his response to the medications and make further adjustments as needed. 2. We will continue to follow up. Dictated by... David Espinal/isiahl TD: 12/09/2016 23:44 JOB #: [id number] [facility] PROGRESS NOTES Page 1 of 1 X Jose Roberto Whitfield MD PROGRESS NOTE
[2016-12-07 09:35] LABS: BASOPHIL% 0.4 % (0-2.5); EOSINOPHIL# 0.2 X10e3 (0-0.7); EOSINOPHIL% 4.8 % (0.0-7.0); HEMATOCRIT 42.8 % (38.0-50.0); HEMOGLOBIN 13.9 gm/dL (13.0-16.0); LYMPHOCYTE# 2.5 X10e3 (1.0-3.5); LYMPHOCYTE% 56.9 % (17.0-45.0); MEAN CELL VOLUME 86.7 FL (83-96); MEAN CORPUSCULAR HEMOGLOBIN 28.2 PG (28-34); MEAN CORPUSCULAR HGB CONC 32.5 g/dL (30-36); MEAN PLATELET VOLUME 6.8 FL (6.5-11.5); MONOCYTE# 0.4 X10e3 (0-1.0); MONOCYTE% 9.6 % (3.0-12.0); NEUTROPHIL# 1.2 X10e3 (1.5-7.1); NEUTROPHIL% 28.3 % (40-75); PLATELET COUNT 233 X10e3 (140-420); RED BLOOD COUNT 4.93 X10e (3.90-5.60); RED CELL DISTRIBUTION WIDTH 13.5 % (11.0-15.5); WHITE BLOOD COUNT 4.3 X10e3 (4.0-10.5)
[2016-12-07 09:37] LABS: DIFF IND YES
[2016-12-07 09:44] LABS: ALBUMIN SERUM 4.5 g/dL (3.5-5.0); BILIRUBIN,TOTAL 0.3 mg/dL (0.2-2.0); BUN/CREATININE RATIO 28.75; CALCIUM SERUM 9.4 mg/dL (8.4-10.2); CREATININE SERUM 0.8 mg/dL (0.6-1.4); GLOM FILT RATE Estimated 136.1 mL/min (>60); POTASSIUM 4.1 mmol/L (3.5-5.1); PROTEIN TOTAL SERUM 7.8 g/dL (6.0-8.3)
[2016-12-07 10:24] LABS: ANISOCYTOSIS SL; PLATELET ESTIMATE NORMAL (NORMAL); RBC NORMAL YES
== END 2016-12-10 12:45 | DRG 885 ==
LOC: P1S 12-06 11:10
PROVIDERS: Psychiatry & Neurology Psychiatry
DX: F25.0 Schizoaffective disorder, bipolar type (principal); F31.32 Bipolar disorder, current episode depressed, moderate; J45.909 Unspecified asthma, uncomplicated; F29 Unspecified psychosis not due to a substance or known physiological condition
CPT/HCPCS: 80053; 85025

== ENCOUNTER 2016-12-14 20:29 | Emergency (ER) | payer OTHER | END 2016-12-14 21:12 | disposition home or self-care (01) | LOC: CED 20:29 | DX: F41.1 Generalized anxiety disorder (principal); J45.909 Unspecified asthma, uncomplicated; F17.200 Nicotine dependence, unspecified, uncomplicated; Z98.890 Other specified postprocedural states; Z88.8 Allergy status to other drugs, medicaments and biological substances | CPT/HCPCS: 99283 ==

== ENCOUNTER 2016-12-19 11:34 | Emergency (ER) | payer OTHER | END 2016-12-19 12:20 | disposition home or self-care (01) | LOC: CED 11:34 | DX: Z76.0 Encounter for issue of repeat prescription (principal); J45.909 Unspecified asthma, uncomplicated; F17.200 Nicotine dependence, unspecified, uncomplicated; Z91.030 Bee allergy status; Z91.041 Radiographic dye allergy status; Z88.8 Allergy status to other drugs, medicaments and biological substances | CPT/HCPCS: 99281 ==

== ENCOUNTER 2016-12-21 02:06 | Emergency (ER) | payer OTHER ==
--- NOTE | ~2016-12-21 | CR72 ---
[facility] A Service of [facility] RADIOLOGY TEXT RESULTS PATIENT: THUY VERMA LOCATION: [facility] : 81 UNIT #: [id number] AGE: [address]: Tong Gordon MD SEX: M ORDER DR: [id number] [facility] [address] [place], [place] [address] [id number] MR#: [id number] Acc #: [id number] NAME: THUY VERMA : 1985 SEX: M STUDY DATE/TIME: 12/21/2016 3:21 UNIT: [facility] ROOM: STUDY DESCRIPTION: CR Chest Single View Portable Attending Physician: Tong Gordon M.D. Ordering Physician: Tong Gordon M.D. Primary Care Physician: Primary Care Physician No MEDICAL IMAGING REPORT This report is preliminary unless electronic signature is present EXAM Portable chest HISTORY Chest pain beginning tonight. Also shortness of air. COMPARISON 11/24/2016 FINDINGS A portable view of the chest was obtained. Heart size and vascularity are normal and lungs are clear and the bones are unremarkable. IMPRESSION No active disease. Dictated by... Srinivasa Fajardo M.D. THIS IS AN ELECTRONICALLY VERIFIED REPORT Srinivasa Fajardo M.D. at 12/21/2016 9:09 PM GUILLERMO/judi TD: 12/21/2016 13:57 JOB #: [id number] MEDICAL IMAGING REPORT Page 1 of 1 COPY
--- NOTE | ~2016-12-21 | EKG ---
PATIENT: THUY VERMA UNIT #: [id number] Ventricular Rate: 97 BPM Atrial Rate: 97 BPM P-R Interval: 154 ms QRS Duration: 86 ms Q-T Interval: 360 ms QTC Calculation(Bezet): 457 ms P Mcclave: 64 degrees Calculated R Mcclave: 64 degrees Calculated T Mcclave: 53 degrees Diagnosis Line: Normal sinus rhythm Diagnosis Line: Possible Left atrial enlargement Diagnosis Line: Left ventricular hypertrophy Diagnosis Line: Cannot rule out Septal infarct , age undetermined Diagnosis Line: Abnormal ECG Diagnosis Line: When compared with ECG of 28-NOV-2016 06:05, Diagnosis Line: Vent. rate has increased BY 35 BPM Diagnosis Line: Minimal criteria for Septal infarct are now Diagnosis Line: Present Diagnosis Line: Confirmed by MONIKA CARBONE MD ([id number]) on Diagnosis Line: 12/21/2016 4:21:54 PM INTERPRETING MD: EDNA
[2016-12-21 03:35] LABS: POC - CKMB 1.2 ng/mL (0.0-7.9); POC - TROPONIN <0.05 ng/mL (<=0.05)
[2016-12-21 04:15] LABS: CALCIUM SERUM 9.1 mg/dL (8.4-10.2); GLOM FILT RATE Estimated 114.1 mL/min (>60); POTASSIUM 4.2 mmol/L (3.5-5.1)
== END 2016-12-21 05:59 | disposition home or self-care (01) ==
LOC: CED 02:06
PROVIDERS: Emergency Medicine
DX: R07.89 Other chest pain (principal); F41.9 Anxiety disorder, unspecified; F17.200 Nicotine dependence, unspecified, uncomplicated; Z88.8 Allergy status to other drugs, medicaments and biological substances
CPT/HCPCS: 71010; 80048; 82553; 84484; 93005; 96372; 99285; J1885

== ENCOUNTER 2016-12-22 08:43 | Emergency (ER) | payer OTHER ==
--- NOTE | ~2016-12-22 | EKG ---
PATIENT: THUY VERMA UNIT #: [id number] Ventricular Rate: 86 BPM Atrial Rate: 86 BPM P-R Interval: 150 ms QRS Duration: 78 ms Q-T Interval: 364 ms QTC Calculation(Bezet): 435 ms P [place]: 64 degrees Calculated R [place]: 67 degrees Calculated T [place]: 57 degrees Diagnosis Line: Normal sinus rhythm Diagnosis Line: Possible Left atrial enlargement Diagnosis Line: Left ventricular hypertrophy Diagnosis Line: Abnormal ECG Diagnosis Line: When compared with ECG of 21-DEC-2016 02:11, Diagnosis Line: No significant change was found Diagnosis Line: Confirmed by PRICILLA CHENG MD ([id number]) on Diagnosis Line: 12/23/2016 10:36:05 AM INTERPRETING MD: SKYLAR STEVENS
[2016-12-22 09:13] LABS: BASOPHIL% 0.4 % (0-2.5); EOSINOPHIL# 0.3 X10e3 (0-0.7); EOSINOPHIL% 5.2 % (0.0-7.0); HEMATOCRIT 40.9 % (38.0-50.0); HEMOGLOBIN 13.5 gm/dL (13.0-16.0); LYMPHOCYTE# 2.4 X10e3 (1.0-3.5); LYMPHOCYTE% 40.1 % (17.0-45.0); MEAN CELL VOLUME 86.4 FL (83-96); MEAN CORPUSCULAR HEMOGLOBIN 28.6 PG (28-34); MEAN CORPUSCULAR HGB CONC 33.1 g/dL (30-36); MEAN PLATELET VOLUME 6.4 FL (6.5-11.5); MONOCYTE# 0.5 X10e3 (0-1.0); MONOCYTE% 7.7 % (3.0-12.0); NEUTROPHIL# 2.8 X10e3 (1.5-7.1); NEUTROPHIL% 46.6 % (40-75); PLATELET COUNT 230 X10e3 (140-420); RED BLOOD COUNT 4.73 X10e (3.90-5.60); RED CELL DISTRIBUTION WIDTH 13.6 % (11.0-15.5)
[2016-12-22 09:15] LABS: DIFF IND NO
[2016-12-22 09:26] LABS: INR 1.1; PARTIAL THROMBOPLASTIN TIME 27.8 SECONDS (23.5-31.3); PROTHROMBIN TIME (PATIENT) 11.7 SECONDS (10.0-11.7)
[2016-12-22 09:43] LABS: ALBUMIN SERUM 4.4 g/dL (3.5-5.0); ALKALINE PHOSPHATASE 54 U/L (32-92); ALT (SGPT) 21 U/L (10-40); AST (SGOT) 47 U/L (10-42); BILIRUBIN,TOTAL 0.5 mg/dL (0.2-2.0); BLOOD UREA NITROGEN 23 mg/dL (9-23); CALCIUM SERUM 9.1 mg/dL (8.4-10.2); CARBON DIOXIDE 27 mmol/L (22-31); CHLORIDE 107 mmol/L (100-111); CREATININE SERUM 1.1 mg/dL (0.6-1.4); GLOM FILT RATE Estimated 101.7 mL/min (>60); GLUCOSE FASTING 91 mg/dL (70-110); POTASSIUM 4.3 mmol/L (3.5-5.1); PROTEIN TOTAL SERUM 7.8 g/dL (6.0-8.3); SODIUM 138 mmol/L (135-145)
[2016-12-22 09:44] LABS: BILIRUBIN, DIRECT <0.1 mg/dL (0.0-0.2); BILIRUBIN,INDIRECT 0.4 mg/dL (0.0-0.9)
[2016-12-22 10:14] LABS: POC - CKMB 1.4 ng/mL (0.0-7.9); POC - TROPONIN <0.05 ng/mL (<=0.05)
== END 2016-12-22 11:50 | disposition left against medical advice (07) ==
LOC: CED 08:43
DX: Z53.21 Procedure and treatment not carried out due to patient leaving prior to being seen by health care provider (principal)
CPT/HCPCS: 80048; 80076; 82553; 84484; 85025; 85610; 85730; 93005

== ENCOUNTER 2016-12-22 15:50 | Emergency (ER) | payer OTHER ==
--- NOTE | ~2016-12-22 | EKG ---
PATIENT: THUY VERMA UNIT #: [id number] Ventricular Rate: 88 BPM Atrial Rate: 88 BPM P-R Interval: 150 ms QRS Duration: 84 ms Q-T Interval: 366 ms QTC Calculation(Bezet): 442 ms P Montgomery: 57 degrees Calculated R Montgomery: 63 degrees Calculated T Montgomery: 53 degrees Diagnosis Line: Normal sinus rhythm Diagnosis Line: Minimal voltage criteria for LVH, may be normal Diagnosis Line: variant Diagnosis Line: Borderline ECG Diagnosis Line: When compared with ECG of 22-DEC-2016 08:54, Diagnosis Line: (unconfirmed) Diagnosis Line: No significant change was found Diagnosis Line: Confirmed by PRICILLA CHENG MD ([id number]) on Diagnosis Line: 12/23/2016 10:41:16 AM INTERPRETING MD: SKYLAR STEVENS
[2016-12-22 20:07] LABS: POC - CKMB 1.1 ng/mL (0.0-7.9); POC - TROPONIN <0.05 ng/mL (<=0.05)
== END 2016-12-22 20:24 | disposition home or self-care (01) ==
LOC: CED 15:50
PROVIDERS: Emergency Medicine
DX: R07.89 Other chest pain (principal); G89.29 Other chronic pain; F41.9 Anxiety disorder, unspecified; J45.909 Unspecified asthma, uncomplicated; F17.200 Nicotine dependence, unspecified, uncomplicated; Z88.6 Allergy status to analgesic agent
CPT/HCPCS: 36415; 82553; 84484; 93005; 99285

== ENCOUNTER 2016-12-24 09:38 | Inpatient (IN) | payer OTHER ==
[~2016-12-24] VITALS: Ht 165.1 cm; Wt 59.0 kg
--- NOTE | ~2016-12-24 | PN ---
Unit #: [id number] #: [id number] Patient: THUY HIGUERA [id number] [facility] [address] [place] [address] [id number] I MR#: [id number] NAME: THUY HIGUERA ROOM: P122 Age: 31 Sex: M Admission Date: 12/24/2016 : 1985 Attending Physician: Jose Roberto Whitfield M.D. Admitting Physician: Jose Roberto Whitfield M.D. Primary Care Physician: Primary Care Physician Zina MIX NOTES DATE December 26, 2016 DISCUSSION Mr. Higuera is a 31-year-old male, with mood disorder, and psychosis, who was seen today and chart was reviewed and the case was discussed with the staff. He remains anxious, withdrawn, disorganized, and seclusive to himself. Meanwhile, he has been taking the medications and tolerating them fairly well with no reported side effects. MENTAL STATUS EXAMINATION Young male, who was casually dressed with fair personal hygiene and appears to be in no acute distress or discomfort. He was awake and alert on interaction with intact orientation. His mood is anxious and depressed with a congruent affect. He denies any suicidal or homicidal ideations. His insight and judgment remain slightly impaired. TREATMENT PLAN 1. We will continue him on his current medications and treatment protocol, and will monitor his response to the medications, and make further adjustments as needed. 2. We will continue to followup. Dictated by... David Espinal/nallely TD: 12/27/2016 10:42 JOB #: [id number] Unit #: [id number] #: [id number] Patient: THUY HIGUERA PROGRESS NOTES Page 1 of 1 X Jose Roberto Whitfield MD X PROGRESS NOTE
--- NOTE | ~2016-12-24 | PN ---
Unit #: [id number] #: [id number] Patient: THUY HIGUERA [id number] [facility] [address] [place] [address] [id number] I MR#: [id number] NAME: THUY HIGUERA ROOM: P122 Age: 31 Sex: M Admission Date: 12/24/2016 : 1985 Attending Physician: Jose Roberto Whitfield M.D. Admitting Physician: Jose Roberto Whitfield M.D. Primary Care Physician: Primary Care Physician Zina MIX NOTES DATE 12/28/2016 DISCUSSION Ms. Higuera is a 29-year-old white male who was seen today and chart was reviewed and case was discussed with the staff. He has been anxious, withdrawn though has not shown any agitation, irritability and has been rather cooperative with treatment recommendations. He has been taking medications and tolerating them fairly well with no reported side effects. MENTAL STATUS EXAMINATION Young male who was casually dressed with fair personal hygiene, appears to be in no acute distress or discomfort. He was awake and alert with impaired attention and concentration. His mood was anxious with congruent affect. His speech was slow and restricted in content. His thought processes were disorganized with some looseness of associations. His insight and judgement remains significantly impaired. TREATMENT PLAN 1. We will continue him on his current medications and treatment protocol. We will monitor his response to the medication and make further adjustments as needed. 2. We will continue to follow up. Dictated by... David Espinal/jaden TD: 12/29/2016 04:00 JOB #: [id number] Unit #: [id number] #: [id number] Patient: THUY HIGUERA PROGRESS NOTES Page 1 of 1 X Jose Roberto Whitfield MD X PROGRESS NOTE
--- NOTE | ~2016-12-24 | PA ---
Unit #: [id number] #: [id number] Patient: [facility] VERMA [id number] [facility] [address] [place] [address] [id number] I MR#: [id number] NAME: THUY VERMA ROOM: P122 Age: 31 Sex: M Admission Date: 12/24/2016 : 1985 Date of Assessment: Attending Physician: Jose Roberto Whitfield M.D. Admitting Physician: Jose Roberto Whitfield M.D. Primary Care Physician: Primary Care Physician No PSYCHIATRIC ASSESSMENT DATE OF SERVICE 12/24/2016. IDENTIFYING DATA Mr. Verma is a 31-year-old single male, who is a resident of [place], [place], and was stepped up to the inpatient unit from the adult intensive outpatient treatment program. He has been active under my care. CHIEF COMPLAINT "I've been unsafe from the voices." HISTORY OF PRESENT ILLNESS Mr. Verma is a 31-year-old male, who showed up to the intensive outpatient treatment program today, reporting command hallucinations with voices telling him to hurt himself and hurt others and that his living situation is bad and unsafe for him calling 911 and crisis intervention team from every available phone and was not letting the staff come help and stating that they were going to get hurt too from people, who were trying to hurt him and for them to stay away from him and was seen to be acutely psychotic with command auditory hallucinations, paranoid, delusional behavior, thoughts of wanting to hurt others and wanting to hurt himself, and was decompensating significantly, and crisis intervention team responded, and the patient was seen to be in florid psychotic state with acute agitation and aggression and as such, recommendation for inpatient level of care was made. The patient was transferred to us. SUBSTANCE ABUSE HISTORY The patient reports occasional experimentation with cannabis, but has not had anything in the last 60 days. PAST PSYCHIATRIC HISTORY The patient has a [facility] to being in the outpatient treatment program and has been going to multiple different hospitals recently. His part of his psychosis wanting him to be checked out and has gotten to the point that [facility] has decided to scoot him off the premises as he comes and due to his repeat presentations. PAST MEDICAL HISTORY Asthma. Unit #: [id number] #: [id number] Patient: THUY VERMA ALLERGIES Ibuprofen. PERSONAL AND SOCIAL HISTORY A 31-year-old male, who reports that he is single, unemployed, and lives at home with mother and other family members and described probably chaotic and unstable housing environment. MENTAL STATUS EXAMINATION Young male, who was casually dressed with fair personal hygiene, appears to be in no acute distress or discomfort. He was awake and alert on interaction with intact orientation. His mood was anxious with a congruent affect. His speech was slow and restricted in content. His thought processes were disorganized with some looseness of associations, paranoid ideations, and delusional behavior, auditory and visual hallucinations, and suicidal ideations. His insight and judgment remain significantly impaired. DIAGNOSTIC IMPRESSION Psychiatric: Chronic paranoid, schizophrenia. Medical: None. Stressors: Moderate psychosocial stressors. TREATMENT PLAN 1. The patient has presented with history of mood disorder and psychosis and has been decompensating and will need inpatient hospitalization for safety and stabilization. We will start him back on his home medications. We will adjust the medications and monitor response. 2. Supportive therapy was provided to the patient. 3. Safe, structured, and nourishing environment will be provided. ESTIMATED LENGTH OF STAY 5 to 7 days. ABILITY TO HELP SELF Limited. WILLINGNESS TO HELP SELF The patient appears to be willing to help self. STRENGTHS 1. Communicative. 2. Cooperative. PROBLEMS 1. Chronic dysphoric symptoms. 2. Chronic chemical dependency. 3. Poor social support system. DISCHARGE CRITERIA This will be contingent upon the patient's ability to show resolution of his psychosis and his ability to stay safe to himself, particularly after discharge from the hospital. Dictated by... Jose Roberto Whitfield M.D. Unit #: [id number] #: [id number] Patient: THUY VERMA JOSE/meryl TD: 12/26/2016 06:08 JOB #: [id number] PSYCHIATRIC ASSESSMENT Page 1 of 1 X Jose Roberto Whitfield MD X PSYCHIATRIC ASSESSMENT
--- NOTE | ~2016-12-24 | PN ---
Unit #: [id number] #: [id number] Patient: THUY HIGUERA [id number] [facility] [address] [place] [address] [id number] I MR#: [id number] NAME: THUY HIGUERA ROOM: P122 Age: 31 Sex: M Admission Date: 12/24/2016 : 1985 Attending Physician: Jose Roberto Whitfield M.D. Admitting Physician: Jose Roberto Whitfield M.D. Primary Care Physician: Primary Care Physician Zina MIX NOTES DATE OF SERVICE: 12/29/2016 SUBJECTIVE Mr. Higuera is a 31-year-old male, who was seen today and chart was reviewed, and case was discussed with the staff. He has been anxious, withdrawn, and rather seclusive to himself and apparently was having some significant anxiety yesterday and p.r.n. Vistaril was given. He has been taking medications and has been tolerating them fairly well. MENTAL STATUS EXAMINATION Young male who was casually dressed with fair personal hygiene, appears to be in no acute distress or discomfort. He was awake and alert on interaction with intact orientation. His mood was anxious and depressed with a congruent affect. He denies any suicidal or homicidal ideation and also denies any auditory or visual hallucinations. His insight and judgment slightly impaired. TREATMENT PLAN 1. We will continue on his current medications and treatment protocol. We will monitor his response to the medications and make further adjustments as needed. 2. We will continue to follow up. Dictated by... David Espinal/meryl TD: 12/29/2016 08:08 JOB #: [id number] [facility] PROGRESS NOTES Page 1 of 1 X Jose Roberto Whitfield MD PROGRESS NOTE
--- NOTE | ~2016-12-24 | TN ---
Unit #: [id number] #: [id number] Patient: THUY VERMA [id number] [facility] [address] [place] [address] [id number] I MR#: [id number] NAME: THUY VERMA ROOM: P122 Age: 31 Sex: M Admission Date: 12/24/2016 : 1985 Discharge Date: 12/29/2016 Attending Physician: Jose Roberto Whitfield M.D. Primary Care Physician: Primary Care Physician No LOC TRANSFER NOTE DATE OF SERVICE: 12/30/2016 DATE OF SERVICE 12/30/2016. IDENTIFYING DATA Mr. Verma is a 31-year-old single male, who is a resident of [place], [place], and was stepped down to the outpatient treatment program from the adult inpatient psychiatric unit. CHIEF COMPLAINT "I was hearing voices." HISTORY OF PRESENT ILLNESS Mr. Verma is a 31-year-old male with history of schizophrenia, who was stepped down to the outpatient treatment program after he [facility] due to acute psychosis and paranoia and delusional behavior. A long-acting injectable antipsychotic was sought. When seen by me, the patient appears to be doing much better and reports that he is getting ready to get his long-acting injectable antipsychotic after initially he was very reluctant to take the injection and now he is willing to take the injection. He reports that he left the hospital and went home and has been staying with his family and it has been working out pretty good. One of his main concern has been his paranoia, where he believes that family is trying to do something against him and has been calling 911 repeatedly with increasing paranoia to the level of being debilitated by it. SUBSTANCE ABUSE HISTORY The patient denies any alcohol or drug abuse. PAST PSYCHIATRIC HISTORY The patient has had a history of inpatient and outpatient psychiatric treatment and has been diagnosed and treated for schizophrenia and is currently on Abilify and is in the process of being transitioned to Aristada long-acting injectable antipsychotic. PAST MEDICAL HISTORY The patient's medical history is significant for asthma. ALLERGIES Ibuprofen. Unit #: [id number] #: [id number] Patient: THUY VERMA PERSONAL AND SOCIAL HISTORY A 31-year-old male, who reports that he is single, unemployed, and lives at home with his family and has fairly decent social support system. MENTAL STATUS EXAMINATION Young male, who was casually dressed with fair personal hygiene, appears to be in no acute distress or discomfort. He was awake and alert on interaction with intact orientation to time, place, and person. His mood was anxious with a congruent affect. His speech was slow and goal directed. He denies any suicidal or homicidal ideations and also denies any auditory or visual hallucinations. His insight and judgment remain slightly impaired. DIAGNOSTIC IMPRESSION Psychiatric: Chronic paranoid schizophrenia. Medical: None. Stressors: Moderate psychosocial stressors. TREATMENT PLAN 1. The patient has presented with a history of chronic mental illness and has been decompensating. We will recommend enrolling him into the outpatient treatment program and maintaining him on his current medications. We will monitor his response and make further adjustments as needed. 2. Supportive therapy was provided to the patient. 3. Safe, structured, and nourishing environment will be provided. ESTIMATED LENGTH OF STAY 14 to 21 days. ABILITY TO HELP SELF Limited. WILLINGNESS TO HELP SELF The patient appears to be willing to help self. STRENGTHS 1. Communicative. 2. Cooperative. PROBLEMS 1. Chronic dysphoric symptoms. 2. Poor social support system. DISCHARGE CRITERIA This will be contingent upon the patient's ability to show resolution of his depression and anxiety as well as his ability to stay safe to himself, particularly after discharge from the hospital. Dictated by... David Espinal/meryl TD: 12/31/2016 17:09 JOB #: [id number] Unit #: [id number] #: [id number] Patient: THUY VERMA LOC TRANSFER NOTE Page 1 of 1 X Jose Roberto Whitfield MD X LOC TRANSFER NOTE
--- NOTE | ~2016-12-24 | PN ---
Unit #: [id number] #: [id number] Patient: THUY HIGUERA [id number] [facility] [address] [place] [address] [id number] I MR#: [id number] NAME: THUY HIGUERA ROOM: P122 Age: 31 Sex: M Admission Date: 12/24/2016 : 1985 Attending Physician: Jose Roberto Whitfield M.D. Admitting Physician: Jose Roberto Whitfield M.D. Primary Care Physician: Primary Care Physician Zina MIX NOTES DATE OF SERVICE: 12/27/2016 SUBJECTIVE Mr. Higuera is a 31-year-old male, who was seen today and chart was reviewed and the case was discussed with the staff. He has been anxious, withdrawn, and rather seclusive to himself, though has not shown any agitation or aggression and no acute psychosis is noted. I also have a feeling that he is probably trying to mask and minimize his symptoms and has been constantly asking for him to leave the hospital. He has been enrolled into the long-acting injectable antipsychotics and I would anticipate both the loading doses while on the unit here. MENTAL STATUS EXAMINATION Young male, who was casually dressed with fair personal hygiene, appears to be in no acute distress or discomfort. He was awake and alert with impaired attention and concentration. His mood was anxious with a congruent affect. His speech was slow and restricted in content. His thought processes were disorganized with some looseness of associations and paranoid ideations and delusional behavior. His insight and judgment remain significantly impaired. TREATMENT PLAN 1. We will continue him on his current treatment protocol. We will monitor his response to the medications and make further adjustments as needed. 2. We will continue to follow up. Dictated by... David Espinal/meryl TD: 12/27/2016 17:50 JOB #: [id number] Unit #: [id number] #: [id number] Patient: THUY HIGUERA PROGRESS NOTES Page 1 of 1 X Nahid,Jose Roberto Brennan MD X PROGRESS NOTE
--- NOTE | ~2016-12-24 | HP ---
Unit #: [id number] #: [id number] Patient: THUY VERMA [id number] [place] [address] [id number] I MR#: [id number] NAME: THUY VERMA ROOM: P122 Age: 31 Sex: M Admission Date: 12/24/2016 : 1985 Attending Physician: Jose Roberto Whitfield M.D. Admitting Physician: Jose Roberto Whitfield M.D. Primary Care Physician: Primary Care Physician No HISTORY AND PHYSICAL HISTORY OF PRESENT ILLNESS Thuy is a 31 year old admitted to [address] [place] [address] reporting auditory hallucinations. He has had other admissions to this facility for the same. He is a poor historian so his history is taken from his chart. PAST MEDICAL HISTORY Asthma. PAST SURGICAL HISTORY Left orchiectomy. ALLERGIES Ibuprofen. SOCIAL HISTORY Smokes less than 1/2 pack per day. Drinks alcohol on occasion. Admits to smoking marijuana frequently. FAMILY HISTORY Medically noncontributory. REVIEW OF SYSTEMS He does not answer all questions appropriately. There were no reports of nausea, vomiting or diarrhea. He has had no cough or increased temperature. CURRENT MEDICATIONS 1. Naproxen 500 mg b.i.d. 2. BuSpar 15 mg b.i.d. 3. Risperdal 1 mg b.i.d. 4. Flexeril 10 mg t.i.d. 5. Milk of Magnesia p.r.n. 6. Maalox p.r.n. 7. Tylenol p.r.n. 8. Proventil inhaler p.r.n. 9. Nicotine patch 7 mg daily. PHYSICAL EXAMINATION GENERAL: Alert, well-nourished, in no apparent distress. VITAL SIGNS: Blood pressure 130/74, heart rate 80, respirations 16, temperature 98.6. WEIGHT: 130. HEIGHT: 5 feet 5 inches. Unit #: [id number] #: [id number] Patient: THUY VERMA SKIN: Warm and dry without rash or lesion. HEENT: Normocephalic. TMs not viewed. Oral and nasal passages clear. Conjunctivae clear. PERRLA. EOMs intact. NECK: Supple without lymphadenopathy or thyromegaly. HEART: Regular rate and rhythm without murmur. LUNGS: Clear. ABDOMEN: Soft, nontender. : Not done. EXTREMITIES: No evidence of cyanosis, clubbing or edema. Moves all without focal deficit. NEUROLOGICAL: Grossly within normal limits. Cranial Nerves: II: Visual good are intact. III, IV AND : Extraocular movements are intact. Pupils are equal, round and reactive to light. V: Facial sensation is grossly normal. VII: Facial movements and expression are normal. VIII: Auditory acuity grossly intact. IX, X: Uvula is midline. Phonation is normal. XI: Patient shrugs shoulders and turns head normally. XII: Tongue protrudes in the midline. Sensory and Motor Function: Sensory and motor sensation is grossly normal. Motor: moves all extremities well. Coordination: Gait is normal. Deep Tendon Reflexes: Intact. IMPRESSION Psychiatric admission. RECOMMENDATIONS PSYCHIATRIC: Per psychiatrist. MEDICAL: See no contraindication to participate in facility's activities. MEDICAL PROGNOSIS Good. MEDICAL CONDITION Stable. Dictated by... Holley Wallis P.A.-C. for David Aguilera/paulo TD: 12/24/2016 23:22 JOB #: [id number] HISTORY AND PHYSICAL Page 1 of 1 X Holley Wallis HISTORY AND PHYSICAL
--- NOTE | ~2016-12-24 | PN ---
Unit #: [id number] #: [id number] Patient: THUY HIGUERA [id number] [facility] [address] [place] [address] [id number] I MR#: [id number] NAME: THUY HIGUEAR ROOM: P122 Age: 31 Sex: M Admission Date: 12/24/2016 : 1985 Attending Physician: Jose Roberto Whitfield M.D. Admitting Physician: Jose Roberto Whitfield M.D. Primary Care Physician: Primary Care Physician Zina HENRY PROGRESS NOTES DATE 12/25/2016 DISCUSSION Mr. Higuera is a 31-year-old male who was seen today and chart was reviewed and case was discussed with the staff. He has been anxious, withdrawn and rather seclusive to himself. Meanwhile, he has been cooperative with treatment recommendations and has been taking the medications and tolerating them fairly well with no reported side effects. MENTAL STATUS EXAMINATION Young male who was casually dressed with fair personal hygiene and appears to be in no acute distress or discomfort. He was awake and alert with impaired attention and concentration. His mood was anxious with congruent affect. His speech is slow and tangential. Thought processes were disorganized with some looseness of associations and paranoid ideations. His insight and judgement remains significantly impaired. TREATMENT PLAN 1. Will continue on his current medications and treatment protocol. Will monitor his response and will also consider him to be a candidate for long-acting injectable antipsychotic. 2. Will continue to follow up. Dictated by... David Espinal/paulo TD: 12/25/2016 21:50 JOB #: [id number] Unit #: [id number] #: [id number] Patient: THUY HIGUERA PROGRESS NOTES Page 1 of 1 X Jose Roberto Whitfield MD PROGRESS NOTE
== END 2016-12-29 16:40 | disposition home or self-care (01) | DRG 885 ==
LOC: P1S 09:38
DX: F20.0 Paranoid schizophrenia (principal); R45.851 Suicidal ideations; J45.909 Unspecified asthma, uncomplicated; Z88.6 Allergy status to analgesic agent; F17.210 Nicotine dependence, cigarettes, uncomplicated

== ENCOUNTER 2017-01-03 23:00 | Inpatient (IN) | payer OTHER ==
--- NOTE | ~2017-01-03 | PN ---
Unit #: [id number] #: [id number] Patient: THUY HIGUERA [id number] [facility] [address] [place] [address] [id number] I MR#: [id number] NAME: THUY HIGUERA ROOM: P130 Age: 31 Sex: M Admission Date: 01/04/2017 : 1985 Attending Physician: Jose Roberto Whitfield M.D. Admitting Physician: Jose Roberto Whitfield M.D. Primary Care Physician: Primary Care Physician Zina HENRY PROGRESS NOTES DATE January 09, 2017 DISCUSSION Mr. Higuera is a 31-year-old male, who was seen today and chart was reviewed and the case was discussed with the staff. He has been anxious, withdrawn, and rather seclusive to himself. Meanwhile, he has been cooperative with the treatment recommendations and he has been taking the medications and tolerating them fairly well with no reported side effects. MENTAL STATUS EXAMINATION Young male, who was casually dressed with fair personal hygiene and appears to be in no acute distress or discomfort. He was awake and alert on interaction with intact orientation. His mood is anxious and depressed with a congruent affect. His speech is slow and restricted in content. He denies any suicidal or homicidal ideations, and also denies any auditory or visual hallucinations. His insight and judgment remain slightly impaired. TREATMENT PLAN 1. We will continue him on his current medications and treatment protocol, and will monitor his response to the medications, and make further adjustments as needed. 2. We will continue to followup. Dictated by... David Espinal/nallely TD: 01/10/2017 11:51 JOB #: [id number] Unit #: [id number] #: [id number] Patient: THUY HIGUERA PROGRESS NOTES Page 1 of 1 X Jose Roberto Whitfield MD X PROGRESS NOTE
--- NOTE | ~2017-01-03 | PN ---
Unit #: [id number] #: [id number] Patient: THUY VERMA [id number] [facility] [address] [place] [address] [id number] I MR#: [id number] NAME: THUY VERMA ROOM: 30 Age: 31 Sex: M Admission Date: 01/04/2017 : 1985 Attending Physician: Jose Roberto Whitfield M.D. Admitting Physician: Jose Roberto Whitfield M.D. Primary Care Physician: Primary Care Physician Zina MIX NOTES DATE OF SERVICE 01/07/2017 DISCUSSION . (1) ___ is a 31-year-old male who was seen today. Chart was reviewed and case was discussed with the staff. He has been anxious, withdrawn, and rather seclusive to himself though appears to be doing better as all of a sudden he has started talking out after several days of being mute and refusing to talk and just expressing himself with his hands. Meanwhile, he has been taking the medications and tolerating them fairly well with no reported side effects. MENTAL STATUS EXAMINATION Young male who is casually dressed with fair personal hygiene, appears to be in no acute distress or discomfort. He was awake and alert with impaired attention and concentration. His mood is anxious with congruent affect. His speech is fluent and tangential. His thought processes were disorganized with some looseness of associations and paranoid ideations and delusional behavior. His insight and judgment remain significantly impaired. TREATMENT PLAN 1. We will continue him on his current medications and treatment protocol. We will monitor his response to the medications and make further adjustments as needed. 2. We will continue to follow up. Dictated by... David Espinal/neeta TD: 01/07/2017 10:53 JOB #: [id number] Unit #: [id number] #: [id number] Patient: THUY VERMA PROGRESS NOTES Page 1 of 1 X Jose Roberto Whitfield MD PROGRESS NOTE
--- NOTE | ~2017-01-03 | PA ---
Unit #: [id number] #: [id number] Patient: THUY VERMA [id number] [facility] [address] [place] [address] [id number] I MR#: [id number] NAME: THUY VERMA ROOM: P130 Age: 31 Sex: M Admission Date: 01/04/2017 : 1985 Date of Assessment: Attending Physician: Jose Roberto Whitfield M.D. Admitting Physician: Jose Roberto Whitfield M.D. Primary Care Physician: Primary Care Physician No PSYCHIATRIC ASSESSMENT DATE OF SERVICE 01/04/2017. IDENTIFYING DATA Mr. Verma is a 31-year-old single male, who is a resident of [place], [place], and was stepped up to the inpatient unit from the intensive outpatient treatment program. CHIEF COMPLAINT "I'm hearing voices." HISTORY OF PRESENT ILLNESS Mr. Verma is a 31-year-old male with history of mood disorder, who was stepped up to the inpatient unit due to worsening psychosis, and the patient reports that he has been hearing voices and he came to the outpatient treatment program and was in therapy groups and was shutting down stating that he cannot speak and was pointing towards his throat and was exhibiting very bizarre behavior and then started exhibiting significant paranoia, which always is mostly directed towards his family and reports that his family has drug addiction and mental illness and he needs to be from them because certain family members are trying to hurt him with their behaviors and being passive and aggressive, and the therapist spoke with the patient and mother and mother reports that the patient has locked himself in his room after he got out of the group and went home and has poured out his medications and was telling the therapist that someone is stalking him on the internet and Facebook and they have weapons and they are after him and was seen to be acutely psychotic, and therapist then gave the crisis intervention team number to mother and asked them to call them and the patient was then transferred to us. SUBSTANCE ABUSE HISTORY The patient reports a history of alcohol and cannabis abuse, but denies any current substance abuse issues. PAST PSYCHIATRIC HISTORY The patient has had a history of multiple inpatient psychiatric hospitalizations at [facility] and has done intensive outpatient treatment program at [facility] and has been diagnosed and treated for schizoaffective disorder and was recently started on Aristada as a long-acting injectable antipsychotic, primarily due to his history of poor compliance with medications. Unit #: [id number] #: [id number] Patient: THUY VERMA PAST MEDICAL HISTORY Asthma. ALLERGIES Motrin. PERSONAL AND SOCIAL HISTORY A 31-year-old male, who reports that he is single, unemployed, and lives at home with his mother and has fairly decent social support system. MENTAL STATUS EXAMINATION Young male, who was casually dressed with fair personal hygiene, appears to be in no acute distress or discomfort. He was awake and alert on interaction with intact orientation to time, place, and person. His mood was anxious and depressed with a congruent affect. His speech was slow and restricted in content. His thought processes were disorganized with some looseness of associations and thought blocking and paranoid ideations. His insight and judgment remain significantly impaired. DIAGNOSTIC IMPRESSION Psychiatric: Schizoaffective disorder, bipolar type, most recent episode depressed, recurrent, moderate, with psychosis. Medical: Asthma. Stressors: Moderate stressors. TREATMENT PLAN 1. The patient has presented with a history of mood disorder and psychosis and has been decompensating and will need inpatient hospitalization for safety and stabilization. We will start him back on his home medications. We will adjust the medications and monitor response. 2. Supportive therapy was provided to the patient. 3. Safe, structured, and nourishing environment will be provided. ESTIMATED LENGTH OF STAY 5 to 7 days. ABILITY TO HELP SELF Limited. WILLINGNESS TO HELP SELF The patient appears to be willing to help self. STRENGTHS 1. Communicative. 2. Cooperative. PROBLEMS 1. Chronic dysphoric symptoms. 2. Poor social support system. DISCHARGE CRITERIA This will be contingent upon the patient's ability to show resolution of his depression and psychosis and his ability to stay safe to himself, particularly after discharge from the hospital. Dictated by... Unit #: [id number] #: [id number] Patient: THUY VERMA David Espinal/meryl TD: 01/04/2017 13:51 JOB #: [id number] PSYCHIATRIC ASSESSMENT Page 1 of 1 X Jose Roberto Whitfield MD PSYCHIATRIC ASSESSMENT
--- NOTE | ~2017-01-03 | PN ---
Unit #: [id number] #: [id number] Patient: THUY HIGUERA [id number] [facility] [address] [place] [address] [id number] I MR#: [id number] NAME: THUY HIGUERA ROOM: P130 Age: 31 Sex: M Admission Date: 01/04/2017 : 1985 Attending Physician: Jose Roberto Whitfield M.D. Admitting Physician: Jose Roberto Whitfield M.D. Primary Care Physician: Primary Care Physician Zina MIX NOTES DATE OF SERVICE 01/06/2017 DISCUSSION Mr. Higuera is a 31-year-old male who was seen today. Chart was reviewed and case was discussed with the staff. He has been anxious, withdrawn, and rather seclusive to himself. Meanwhile, he has been cooperative with the treatment recommendations though still has been exhibiting bizarre behavior with thought-blocking, paranoia, and refusing to talk stating that he cannot talk anymore and has been very seclusive and unable to carry on any meaningful conversation. MENTAL STATUS EXAMINATION Young male who is casually dressed with fair personal hygiene, appears to be in no acute distress or discomfort. He was awake and alert with impaired attention and concentration. His mood is anxious with congruent affect. His speech is slow and restricted in content. His thought processes were disorganized with some looseness of associations and thought-blocking and paranoid ideations. His insight and judgment remain significantly impaired. TREATMENT PLAN 1. We will continue him on his current medications and treatment protocol. We will monitor his response to the medications and make further adjustments as needed. 2. We will continue to follow up. Dictated by... David Espinal/neeta TD: 01/06/2017 13:36 JOB #: [id number] Unit #: [id number] #: [id number] Patient: THUY HIGUERA PROGRESS NOTES Page 1 of 1 X Jose Roberto Whitfield MD PROGRESS NOTE
--- NOTE | ~2017-01-03 | PN ---
Unit #: [id number] #: [id number] Patient: THUY HIGUERA [id number] [facility] [address] [place] [address] [id number] I MR#: [id number] NAME: THUY HIGUERA ROOM: P130 Age: 31 Sex: M Admission Date: 01/04/2017 : 1985 Attending Physician: Jose Roberto Whitfield M.D. Admitting Physician: Jose Roberto Whitfield M.D. Primary Care Physician: Primary Care Physician Zina HENRY PROGRESS NOTES DATE OF SERVICE: 01/03/2017 SUBJECTIVE Mr. Higuera is a 31-year-old, male, who was seen today and chart was reviewed and case was discussed with the staff. He has been anxious, withdrawn, and rather seclusive to himself. Meanwhile, he has been cooperative with treatment recommendations and has been taking the medications and tolerating them fairly well with no reported side effects. MENTAL STATUS EXAMINATION Young male, who was casually dressed with fair personal hygiene, appears to be in no acute distress or discomfort. He was awake and alert on interaction with intact orientation. His mood was anxious with a congruent affect. His thought process were disorganized with some looseness of associations, paranoid ideations and delusional behavior. His insight and judgment remain significantly impaired. TREATMENT PLAN 1. We will continue his current treatment protocol. We will monitor his response to medications and make further adjustments as needed. 2. We will continue to follow up. Dictated by... David Espinal/meryl TD: 01/04/2017 01:02 JOB #: [id number] [facility] PROGRESS NOTES Page 1 of 1 X Jose Roberto Whitfield MD X PROGRESS NOTE
--- NOTE | ~2017-01-03 | DS ---
Unit #: [id number] #: [id number] [facility] [id number] [facility] [address] [place] [address] [id number] I MR#: [id number] NAME: THUY VERMA ROOM: 30 Age: 31 Sex: M Admission Date: 01/04/2017 : 1985 Discharge Date: 01/10/2017 Attending Physician: Jose Roberto Whitfield M.D. Primary Care Physician: Primary Care Physician No DISCHARGE SUMMARY IDENTIFYING DATA Mr. Verma is a 31-year-old, single, male, who is a resident of [place], [place], and was stepped up to the inpatient unit from the intensive outpatient treatment program. DISCHARGE DIAGNOSES Psychiatric: Schizoaffective disorder, bipolar type, most recent episode depressed, recurrent, moderate, without psychotic features. Medical: None. Stressors: Moderate psychosocial stressors. HISTORY OF PRESENT ILLNESS Please see initial psychiatric evaluation for details. PAST PSYCHIATRIC HISTORY Please see initial psychiatric evaluation for details. PAST MEDICAL HISTORY Please see initial psychiatric evaluation for details. HOSPITAL COURSE The patient was admitted to the adult psychiatric unit at [facility] no[facility] and was oriented to the hospital environment. Routine p.r.n. medications were initiated, and he was started back on his home medications. Upon presentation, he was seen to be acutely psychotic with bizarre behavior and selective mutism and refusing to talk and pointing towards his throat and communicating with the help of hand gestures; however, he was taking the medications and Risperdal was increased to 2 mg b.i.d. He was seen to be doing fairly well and then he all of sudden started speaking himself without any complications and was able to carry a meaningful conversation and no acute psychosis was noted. He was taking the medications regularly and was tolerating them fairly well and was willing to continue treatment on an outpatient basis and as such, it was decided that he will be discharged home and will continue treatment on an outpatient basis. DISCHARGE MEDICATIONS Risperdal 2 mg b.i.d. for psychosis. DISCHARGE CONDITION Unit #: [id number] #: [id number] Patient: THUY VERMA Stable. PROGNOSIS Fair. Dictated by... Jose Roberto Whitfield M.D. IAA/modl TD: 01/11/2017 23:26 JOB #: [id number] DISCHARGE SUMMARY Page 1 of 1 X Jose Roberto Whitfield MD DISCHARGE SUMMARY
--- NOTE | ~2017-01-03 | HP ---
Unit #: [id number] #: [id number] Patient: THUY VERMA [id number] [facility] [place] [address] [id number] I MR#: [id number] NAME: THUY VERMA ROOM: P130 Age: 31 Sex: M Admission Date: 01/04/2017 : 1985 Attending Physician: Jose Roberto Whitfield M.D. Admitting Physician: Jose Roberto Whitfield M.D. Primary Care Physician: Primary Care Physician No HISTORY AND PHYSICAL HISTORY OF PRESENT ILLNESS Thuy is a 31-year-old male admitted on 01/04/[address] [place] [address] for psychosis. During the evaluation he did not speak but did provide hand gestures to complete information so therefore information is taken from exam and records. PAST MEDICAL HISTORY Asthma PAST SURGICAL HISTORY Denies. SOCIAL HISTORY Denies tobacco, alcohol or illegal drug use. He is currently single and living with his mother. FAMILY HISTORY Noncontributory. REVIEW OF SYSTEMS CONSTITUTIONAL: No fever or chills. HEENT: Denies any sore throat, ear pain or runny nose. CARDIOVASCULAR: Denies chest pain, irregular heart rhythm or palpitations. CHEST: Denies shortness of breath or cough. No hemoptysis. GASTROINTESTINAL: Denies nausea, vomiting, diarrhea or chronic constipation. ENDOCRINE: Denies history of increased thirst or urination. No recent significant weight loss or gain. GENITOURINARY: Denies dysuria, frequency, or hematuria. SKIN: Denies any rashes. HEMATOLOGIC: Denies history of increased bleeding or bruising. MUSCULOSKELETAL: Denies any hot, swollen joints. No generalized muscle pain. NEUROLOGIC: Denies problems with vision or speech. No frequent, severe headaches. No numbness, tingling or weakness in any extremities. Denies loss of bladder or bowel control. CURRENT MEDICATIONS 1. Proventil 2. BuSpar 3. Flexeril Unit #: [id number] #: [id number] Patient: THUY VERMA 4. Vistaril 5. Naproxen 6. Risperdal ALLERGIES Motrin and red and green dyes. PHYSICAL EXAMINATION GENERAL: Alert, oriented, in no acute distress. VITAL SIGNS: Blood pressure 131/86, heart rate 112, respirations 16, temperature 97.7. HEIGHT: 5 foot 5 inches. WEIGHT: 124 pounds. SKIN: Warm and dry without rash or lesion. HEENT: Normocephalic. TMs not viewed. Oral and nasal passages clear. Conjunctivae clear. PERRLA. EOMs intact. NECK: Supple without lymphadenopathy or thyromegaly. HEART: Regular rate and rhythm without murmur. LUNGS: Clear. ABDOMEN: Soft, nontender, without masses or hepatosplenomegaly. : Not done. EXTREMITIES: No evidence of cyanosis, clubbing or edema. Moves all without focal deficit. NEUROLOGICAL: Grossly within normal limits. Cranial Nerves: II: Visual good are intact. III, IV AND : Extraocular movements are intact. Pupils are equal, round and reactive to light. V: Facial sensation is grossly normal. VII: Facial movements and expression are normal. VIII: Auditory acuity grossly intact. IX, X: Uvula is midline. Phonation is normal. XI: Patient shrugs shoulders and turns head normally. XII: Tongue protrudes in the midline. Sensory and Motor Function: Sensory and motor sensation is grossly normal. Motor: moves all extremities well. Coordination: Gait is normal. Deep Tendon Reflexes: Intact. IMPRESSION 1. Psychiatric admission. 2. Asthma. RECOMMENDATIONS Psychiatric, per psychiatrist. MEDICAL: I see no contraindications to participating in facility's activities. MEDICAL PROGNOSIS Good. MEDICAL CONDITION Stable. Dictated by... Josefa Sands A.P.R.N. Unit #: [id number] #: [id number] Patient: THUY VERMA MARCELLA/jaden TD: 01/04/2017 20:17 JOB #: [id number] HISTORY AND PHYSICAL Page 1 of 1 X JOSEFA MEDRANO APRN HISTORY AND PHYSICAL
--- NOTE | ~2017-01-03 | PN ---
Unit #: [id number] #: [id number] Patient: THUY VERMA [id number] [facility] [address] [place] [address] [id number] MR#: [id number] NAME: THUY VERMA ROOM: 30 Age: 31 Sex: M Admission Date: 01/04/2017 : 1985 Attending Physician: Jose Roberto Whitfield M.D. Admitting Physician: David Espinal PROGRESS NOTES DATE OF SERVICE: 01/05/2017 SUBJECTIVE Mr. Verma is a 31-year-old, male, who was seen today and chart was reviewed and case was discussed with the staff. has been exhibiting bizarre behavior and has been selectively mute and refusing to talk; pointing towards his throat but at the same time has been eating and drinking without any issues swallowing. He has been exhibiting paranoia and some significant delusional behavior. MENTAL STATUS EXAMINATION Young male, who was casually dressed with fair personal hygiene, appears to be in no acute distress or discomfort. He was awake and alert with impaired attention and concentration. His mood was anxious with a congruent affect. His speech was slow and restricted in content. His thought process was disorganized with some looseness of associations and paranoid ideations and delusional behavior. His insight and judgment remain significantly impaired. TREATMENT PLAN 1. We will continue him on his current medications and treatment protocol, and we will monitor his response and make further adjustments as needed. 2. We will continue to follow up. Dictated by... David Espinal/meryl TD: 01/05/2017 08:16 JOB #: [id number] Unit #: [id number] #: [id number] Patient: THUY VERMA PROGRESS NOTES Page 1 of 1 X Jose Roberto Whitfield MD PROGRESS NOTE
--- NOTE | ~2017-01-03 | TN ---
Unit #: [id number] #: [id number] Patient: THUY VERMA [id number] [facility] [address] [place] [address] [id number] MR#: [id number] NAME: THUY VERMA ROOM: P130 Age: 31 Sex: M Admission Date: 01/04/2017 : 1985 Discharge Date: 01/10/2017 Attending Physician: Jose Roberto Whitfield M.D. Primary Care Physician: Primary Care Physician No LOC TRANSFER NOTE DATE OF SERVICE: 01/11/2017 HISTORY OF PRESENT ILLNESS Mr. Verma is a 31-year-old, single, male, who is a resident of [place], [place], and was stepped down to the outpatient treatment program from the adult inpatient psychiatric unit where he was hospitalized under my care from 01/04/2017 through 01/11/2017 and was brought to the hospital with acute psychosis, paranoia, delusional behavior, and medications were adjusted and the patient was stabilized and stepped down to the outpatient treatment program. Upon evaluation by me, the patient appears to be doing fairly well and stated that he did not go back home to his mother even though his mother has been asking him to go home and he has been staying with his cousin who told him that he only can stay there for a couple of days, but that he is trying to get stable and wants to be able to go find a job and be able to work. Meanwhile, he has been taking medications and tolerating them fairly well with no reported side effects. SUBSTANCE ABUSE HISTORY The patient denies any alcohol or drug abuse. PAST PSYCHIATRIC HISTORY The patient has had a history of multiple inpatient psychiatric hospitalizations, and has been diagnosed and treated for schizoaffective disorder, bipolar type, and review of the medical records indicate that currently he is on a combination of Risperdal, BuSpar, and also has been maintained on a long-acting injectable antipsychotic. PAST MEDICAL HISTORY Asthma. ALLERGIES Ibuprofen. PERSONAL AND SOCIAL HISTORY A 31-year-old male, who reports that he is single, unemployed, and lives at home with his mother, though currently he has been staying with his cousin. MENTAL STATUS EXAMINATION Young male, who was casually dressed with fair personal hygiene, appears to be in no acute distress or discomfort. He was awake and alert on interaction with intact orientation. His mood was anxious Unit #: [id number] #: [id number] Patient: THUY VERMA with a congruent affect. His speech was slow and goal directed. He denies any suicidal or homicidal ideations and also denies any auditory or visual hallucinations. His insight and judgment remain slightly impaired. DIAGNOSTIC IMPRESSION Psychiatric: Schizoaffective disorder, bipolar type, most recent episode depressed, recurrent, moderate, with psychosis. Medical: Asthma. Stressors: Moderate psychosocial stressors. TREATMENT PLAN 1. The patient has presented with a history of mood disorder and psychosis and we will recommend enrolling him into the outpatient treatment program and maintaining him on his current medication. We will monitor his response and make further adjustments as needed. 2. Supportive therapy was provided to the patient. ESTIMATED LENGTH OF STAY 14 to 21 days. ABILITY TO HELP SELF Limited. WILLINGNESS TO HELP SELF The patient appears to be willing to help self. STRENGTHS 1. Communicative. 2. Cooperative. PROBLEMS 1. Chronic dysphoric symptoms. 2. Poor social support system. DISCHARGE CRITERIA This will be contingent upon the patient's ability to show resolution of his depression and psychosis and his ability to stay safe to himself, particularly after discharge from the hospital. Dictated by... David Espinal/meryl TD: 01/12/2017 00:42 JOB #: [id number] Unit #: [id number] #: [id number] Patient: THUY VERMA LOC TRANSFER NOTE Page 1 of 1 X Jose Roberto Whitfield MD X LOC TRANSFER NOTE
--- NOTE | ~2017-01-03 | PN ---
Unit #: [id number] #: [id number] Patient: THUY HIGUERA [id number] [facility] [address] [place] [address] [id number] MR#: [id number] NAME: THUY HIGUERA ROOM: P130 Age: 31 Sex: M Admission Date: 01/04/2017 : 1985 Attending Physician: Jose Roberto Whitfield M.D. Admitting Physician: Jose Roberto Whitfield M.D. Primary Care Physician: Primary Care Physician Zina HENRY PROGRESS NOTES DATE 01/08/2017 DISCUSSION Mr. Higuera is a 31-year-old male who was seen today and chart was reviewed and case was discussed with the staff. He has been anxious, restless though has not shown any agitation, irritability and has been rather seclusive to himself. Meanwhile, he has been taking medications and tolerating them fairly well with no reported side effects. MENTAL STATUS EXAMINATION Young male who was casually dressed with fair personal hygiene and appears to be in no acute distress or discomfort. He was awake and alert with impaired attention and concentration. His mood was anxious with congruent affect. He denies any suicidal or homicidal ideations. His thought processes were disorganized with some looseness of associations and thought blocking and paranoid ideations. His insight and judgement remains significantly impaired. TREATMENT PLAN 1. Will continue on his current treatment protocol. Will monitor his response to the medications and make further adjustments as needed. 2. Will continue to follow up. Dictated by... David Espinal/paulo TD: 01/08/2017 22:25 JOB #: [id number] Unit #: [id number] #: [id number] Patient: THUY HIGUERA PROGRESS NOTES Page 1 of 1 X Jose Roberto Whitfield MD PROGRESS NOTE
== END 2017-01-10 14:00 | DRG 885 ==
LOC: P1S 01-04 03:02
DX: F31.5 Bipolar disorder, current episode depressed, severe, with psychotic features (principal); J45.909 Unspecified asthma, uncomplicated
CPT/HCPCS: J1200

== ENCOUNTER 2017-01-19 18:01 | Emergency (ER) | payer OTHER ==
[~2017-01-19] VITALS: Ht 165.1 cm; Wt 58.0 kg
--- NOTE | ~2017-01-19 | EKG ---
PATIENT: THUY VERMA UNIT #: [id number] Ventricular Rate: 109 BPM Atrial Rate: 109 BPM P-R Interval: 150 ms QRS Duration: 80 ms Q-T Interval: 326 ms QTC Calculation(Bezet): 439 ms P [place]: 72 degrees Calculated R [place]: 68 degrees Calculated T [place]: 56 degrees Diagnosis Line: Sinus tachycardia Diagnosis Line: Otherwise normal ECG Diagnosis Line: No previous ECGs available Diagnosis Line: Confirmed by IGNACIO SHAH MD ([id number]) on 01/20/2017 Diagnosis Line: 7:13:05 PM INTERPRETING MD: ALYSSA STEVENS
[2017-01-19 21:20] LABS: URINE SOURCE CLEAN CATCH
[2017-01-19 21:36] LABS: URINE APPEARANCE CLEAR; URINE BILIRUBIN NEG (NEG); URINE BLOOD NEG (NEG); URINE COLOR YELLOW; URINE GLUCOSE NEG (NEG); URINE KETONE TRACE (NEG); URINE LEUKOCYTE ESTERASE 1+ (NEG); URINE NITRATE NEG (NEG); URINE PH 5.5 (5-8); URINE PROTEIN NEG (NEG); URINE SPECIFIC GRAVITY 1.031 (1.003-1.035); URINE UROBILINOGEN 0.2 MG/DL (NEG)
[2017-01-19 21:38] LABS: CULTURE INDICATED? YES; URBCS1 AUWI 0-2 /[HPF] (0-2); URINE BACTERIA AUWI NEG (NEGATIVE); URINE SQUAMOUS EPITHELIAL CELL OCC /[HPF]; UWBCS1 AUWI 25-50 (0-5)
== END 2017-01-19 22:05 | disposition left against medical advice (07) ==
LOC: CED 18:01
PROVIDERS: Emergency Medicine
DX: Z53.21 Procedure and treatment not carried out due to patient leaving prior to being seen by health care provider (principal)
CPT/HCPCS: 81003; 87086; 93005

== ENCOUNTER 2017-01-20 04:57 | Emergency (ER) | payer OTHER ==
[~2017-01-20] VITALS: Ht 165.1 cm; Wt 58.0 kg
--- NOTE | ~2017-01-20 | EKG ---
PATIENT: THUY VERMA UNIT #: [id number] Ventricular Rate: 96 BPM Atrial Rate: 96 BPM P-R Interval: 140 ms QRS Duration: 80 ms Q-T Interval: 336 ms QTC Calculation(Bezet): 424 ms P [place]: 50 degrees Calculated R [place]: 57 degrees Calculated T [place]: 45 degrees Diagnosis Line: Normal sinus rhythm with sinus arrhythmia Diagnosis Line: Minimal voltage criteria for LVH, may be normal Diagnosis Line: variant Diagnosis Line: Early repolarization Diagnosis Line: Borderline ECG Diagnosis Line: When compared with ECG of 19-JAN-2017 18:13, Diagnosis Line: (unconfirmed) Diagnosis Line: No significant change was found Diagnosis Line: Confirmed by IGNACIO SHAH MD ([id number]) on 01/20/2017 Diagnosis Line: 7:21:45 PM INTERPRETING MD: ALYSSA STEVENS
[2017-01-20 08:00] LABS: BASOPHIL% 0.4 % (0-2.5); EOSINOPHIL# 0.2 X10e3 (0-0.7); EOSINOPHIL% 5.6 % (0.0-7.0); HEMATOCRIT 36.6 % (38.0-50.0); HEMOGLOBIN 12.4 gm/dL (13.0-16.0); LYMPHOCYTE# 1.4 X10e3 (1.0-3.5); LYMPHOCYTE% 37.3 % (17.0-45.0); MEAN CELL VOLUME 85.7 FL (83-96); MEAN CORPUSCULAR HEMOGLOBIN 29.1 PG (28-34); MEAN CORPUSCULAR HGB CONC 33.9 g/dL (30-36); MEAN PLATELET VOLUME 6.3 FL (6.5-11.5); MONOCYTE# 0.4 X10e3 (0-1.0); MONOCYTE% 9.6 % (3.0-12.0); NEUTROPHIL# 1.8 X10e3 (1.5-7.1); NEUTROPHIL% 47.1 % (40-75); PLATELET COUNT 231 X10e3 (140-420); RED BLOOD COUNT 4.28 X10e (3.90-5.60); RED CELL DISTRIBUTION WIDTH 13.2 % (11.0-15.5); WHITE BLOOD COUNT 3.8 X10e3 (4.0-10.5)
[2017-01-20 08:07] LABS: DIFF IND NO
[2017-01-20 08:24] LABS: BUN/CREATININE RATIO 17.77; CALCIUM SERUM 9.2 mg/dL (8.4-10.2); CREATININE SERUM 0.9 mg/dL (0.6-1.4); GLOM FILT RATE Estimated 129.6 mL/min (>60)
[2017-01-20 08:36] LABS: AMPHETAMINE NEG (NEG); BARBITURATES NEG (NEG); BENZODIAZEPINES NEG (NEG); COCAINE NEG (NEG); MARIJUANA NEG (NEG); OPIATES NEG (NEG); TRICYCLIC ANTIDEPRESSANTS POS (NEG); U METHADONE NEG (NEG)
== END 2017-01-20 09:00 | disposition home or self-care (01) ==
LOC: CED 04:57
PROVIDERS: Emergency Medicine
DX: N34.2 Other urethritis (principal); G47.00 Insomnia, unspecified; F41.9 Anxiety disorder, unspecified; R53.81 Other malaise; R53.83 Other fatigue; F25.9 Schizoaffective disorder, unspecified; Z87.891 Personal history of nicotine dependence; Z88.8 Allergy status to other drugs, medicaments and biological substances; Z91.041 Radiographic dye allergy status
CPT/HCPCS: 36415; 80048; 80307; 85025; 93005; 96372; 99284; J0696